=== PATIENT | male | born 1945 | race Caucasian/White ===

== ENCOUNTER 2017-05-29 12:42 | Inpatient (IN) | payer MEDICARE, OTHER ==
--- NOTE | 2017-05-29 13:12 | EDM.PDOC ---
ED HPI GENERAL MEDICAL PROBLEM - General Chief Complaint: Fever Stated Complaint: headache, fever Time Seen by Provider: 05/29/17 13:05 Source of Information: Reports: Patient, Alf Records [place] [place] with minimal verbal report from the nursing staff), Old Records ([facility] chart/EMR) History Limitations: Reports: Altered Mental Status - History of Present Illness INITIAL COMMENTS - FREE TEXT/NARRATIVE: Patient is a poor historian and somewhat uncooperative. He was brought to the emergency room via transport vehicle from [facility] for evaluation of intermittent fevers, borderline increased confusion, and borderline fatigue with symptoms starting about 3 days ago. He has had an intermittent temperature of 101.8 since that time with last Tylenol dosage earlier this morning. No apparent recent chest pain or anginal type symptoms. He denies any abdominal pain, nausea, emesis, etc. with apparent normal bowel movement earlier today per jail staff. He denies any cough, wheezing, dyspnea or distress. He does complain of 8/10 nonspecific bilateral occipital headache, however no other known change in his previous neurological status. Blood work earlier today did show some significant leukocytosis with his regular provider, [place] May[place] PA-C[place] [facility] [place]. No other treatment prior to arrival Onset: Today, Unknown/Unsure Onset Date: 05/26/17 Duration: Getting Worse Location: Reports: Head. Denies: Face, Neck, Chest, Abdomen, Back, Upper Extremity, Left, Upper Extremity, Right, Radiates to Quality: Reports: Ache, Same as Previous Episode Severity: Severe Improves with: Reports: None Worsens with: Reports: None Context: Reports: Other (As above) Associated Symptoms: Reports: Confusion, Fever/Chills, Headaches, Other ( Nonspecific fatigue as above). Denies: Chest Pain, Cough, cough w sputum, Diaphoresis, Loss of Appetite, Nausea/Vomiting, Shortness of Breath, Weakness Treatments KEYBOARD INSTRUMENT TUNER: Reports: Acetaminophen - Related Data Allergies Allergy/AdvReac Type Severity Reaction Status Date / Time No Known Allergies Allergy Verified 09/30/14 19:33 Home Meds: Home Meds Calcium Polycarbophil [Fibercon] 625 mg PO DAILY 04/02/14 [History] Carvedilol [Coreg] 12.5 mg PO BID 04/02/14 [History] Hydrochlorothiazide 12.5 mg PO DAILY 04/02/14 [History] Methenamine Hippurate 1 gm PO BID 04/02/14 [History] Tamsulosin [Flomax] 0.4 mg PO DAILY@1600 04/02/14 [History] atorvaSTATin [Lipitor] 20 mg PO 0800 04/02/14 [History] glipiZIDE [Glipizide ER] 7.5 mg PO BID 04/02/14 [History] Acetaminophen [Tylenol] 650 mg PO Q4HR PRN #14 tablet 09/30/14 [Rx] Lisinopril 20 mg PO DAILY 09/30/14 [History] Pantoprazole [ProTONIX] 40 mg PO DAILY 09/30/14 [History] amLODIPine [Norvasc] 5 mg PO DAILY 09/30/14 [History] Aspirin [Halfprin] 81 mg PO DAILY 05/29/17 [History] Hydrocortisone [Hydrocortisone 1% Crm] 1 dose TOP BID PRN 05/29/17 [History] Lisinopril [Prinivil] 10 mg PO DAILY@1600 05/29/17 [History] Loperamide HCl [Imodium A-D] 2 mg PO ASDIRECTED PRN 05/29/17 [History] Mag Hydrox/Al Hydrox/Simeth [Antacid M Liquid] 15 - 20 ml PO QID PRN 05/29/17 [ History] Sennosides/Docusate Sodium [Senna S Tablet] 1 each PO DAILY 05/29/17 [History] Past Medical History HEENT History: Reports: Hard of Hearing, Impaired Vision, Other (See Below). Denies: Allergic Rhinitis Other HEENT History: Wears reading glasses, bilateral presbycusis with no current therapy Cardiovascular History: Reports: CAD, Cardiomyopathy, High Cholesterol, Hypertension. Denies: Afib, Arrhythmia, PR Respiratory History: Reports: None Gastrointestinal History: Reports: Chronic Constipation, Colon Polyp, Diverticulosis, Gastritis, GERD, GI Bleed, PUD, Other (See Below) Other Gastrointestinal History: Lower GI bleed secondary to diverticulitis on Genitourinary History: Reports: BPH, Chronic Renal Insuffiency, Diabetic Nephropathy, Renal Calculus, Retention, Urinary, Urinary Incontinence, UTI, Recurrent, Other (See Below) Other Genitourinary History: BPH with history of PSA elevation and secondary urinary retention and incontinence, chronic bilateral hydroceles Musculoskeletal History: Reports: Back Pain, Chronic, Neck Pain, Chronic, Osteoarthritis Neurological History: Reports: CVA, Other (See Below) Other Neuro History: 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 Denies: Diabetes, Type I, Hypothyroidism, IDDM Hematologic History: Reports: Anemia, Blood Transfusion(s), Other (See Below) Other Hematologic History: Possible previous blood transfusion secondary to lower GI bleed in March 2014 Immunologic History: Denies: AIDS, HIV, SLE Oncologic (Cancer) History: Reports: Other (See Below). Denies: Prostate Other Oncologic History: Denies cancer history although note BPH with PSA elevation by history Dermatologic History: Reports: Chronic Cellulitis, Other (See Below) Other Dermatologic History: Chronic tinea in the perineal and testicle region, actinic keratoses - Infectious Disease History Infectious Disease History: Reports: Chicken Pox, Measles, Mumps. Denies: C- Difficile, MRSA, VRE - Past Surgical History HEENT Surgical History: Reports: Myringotomy w Tube(s), Oral Surgery, Other ( See Below) Other HEENT Surgeries/Procedures: Bilateral PE tubes as a child, [place] teeth extraction GI Surgical History: Reports: Colonoscopy, Other (See Below) Other GI Surgeries/Procedures: Last colonoscopy in April 2014 at the [facility], EGD in April 2014 at the [facility] Male Surgical History: Reports: TURP-Transurethral Resection of Prostate. Denies: Circumcision - History Comment History Comment: Unable to obtain complete history secondary to patient's mental status and uncooperativeness Social & Family History - Family History Family Medical History: Unobtainable - Tobacco Use Tobacco Use Within Last Twelve Months: No Years of Tobacco use: 20 Used Tobacco, but Quit: Yes Month Tobacco Last Used: 2012 Smoking Cessation Information Provided To Patient: No Second Hand Smoke Exposure: No Second Hand Smoke Education Provided: No - Alcohol Use Alcohol Use History: Yes Days Per Week of Alcohol Use: 0 (Last alcohol use in about 1994) - Recreational Drug Use Recreational Drug Use: No Drug Use in Last 12 Months: No - Living Situation & Occupation Living situation: Reports: (2 children), Extended Care Facility (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 ED EXAM, GENERAL - Physical Exam Exam: See Below Exam Limited By: Altered Mental Status General Appearance: Alert, WD/WN, No Apparent Distress, Anxious (Mild to moderate), Other (Uncooperative wants to go back to the jail) Eye Exam: Bilateral Eye: EOMI, Normal Inspection (No nystagmus), PERRL Ears: Normal External Exam, Normal Canal (Moderate cerumen in the EACs left greater than right), Normal TMs, Hearing Loss (Stable chronic bilateral presbycusis but no hearing aide therapy) Throat/Mouth: Normal Inspection, Normal Lips, Normal Teeth, Normal Gums, Normal Oropharynx, Normal Voice, No Airway Compromise Head: Atraumatic, Normocephalic. No: Facial Swelling, Facial Tenderness, Sinus Tenderness Neck: Supple, Non-Tender, Full Range of Motion, Carotid Bruit (Mild bilateral carotid bruits). No: Lymphadenopathy (L), Lymphadenopathy (R), Thyromegaly Respiratory/Chest: No Respiratory Distress, No Accessory Muscle Use, Chest Non- Tender, Rales (Mild bilateral basilar). No: Pleural Rub, Retractions Cardiovascular: Normal Peripheral Pulses, Regular Rate, Rhythm, No Edema, No Gallop, No JVD, No Murmur, No Rub. No: Gallop/S3, Gallop/S4, Friction Rub Peripheral Pulses: 2+: Radial (L), Radial (R), Dorsalis Pedis (L), Dorsalis Pedis (R) GI/Abdominal: Normal Bowel Sounds, Soft, Non-Tender, No Organomegaly, No Distention, No Abnormal Bruit, No Mass, Pelvis Stable, Hernia (3 cm nonincarcerated umbilical hernia), Other (Obese). No: Guarding, Rebound (Male) Exam: Other (Bilateral hydroceles with stable chronic perennial dermatitis). No: Circumcised Rectal (Males) Exam: Deferred Back Exam: Normal Inspection, Full Range of Motion. No: CVA Tenderness (L), CVA Tenderness (R), Muscle Spasm Extremities: Non-Tender, No Pedal Edema, Normal Capillary Refill. No: Emely's Sign, Limited Range of Motion (Secondary to left hemiparesis) Neurological: Alert, Normal Reflexes (Negative Babinski's), Confused (Stable chronic), Sensory/Motor Deficit (Stable mild to moderate left-sided hemiparesis) Psychiatric: Anxious (Mild to moderate), Depressed Mood (Mild with adequate eye contact), Other (Uncooperative as above) Skin Exam: Dry, Intact, Rash (Perineal and scrotal region as above ). No: Decubitus, Diaphoretic, Wound/Incision Lymphatic: No Adenopathy Course - Vital Signs Last Recorded V/S: Last Vital Signs Temp 38.1 C 05/29/17 13:01 Pulse 61 05/29/17 14:00 Resp 20 05/29/17 14:00 BP 132/56 L 05/29/17 14:00 Pulse Ox 95 05/29/17 14:00 Vital Signs - 24 hr 05/29/17 05/29/17 05/29/17 13:01 13:47 14:00 Temperature [ 38.1 C Temporal] Pulse, 79 79 61 Peripheral [ Right Pulse Oximetry] Respiratory 20 20 20 Rate Blood Pressure 130/61 142/76 H 132/56 L [Right Upper Arm] O2 Sat by Pulse 98 95 95 Oximetry - Orders/Labs/Meds Orders: Active Orders 24 hr Category Date Time Status Cardiac Monitoring [RC] . DIRECTED Care 05/29/17 13:24 Active Chest 1V Frontal [CR] Stat Exams 05/29/17 13:13 Taken CULTURE BLOOD [BC] Stat Lab 05/29/17 13:15 Ordered CULTURE BLOOD [BC] Stat Lab 05/29/17 13:40 Received CULTURE URINE [RM] Stat Lab 05/29/17 13:40 Received INFLUENZA A+B AG SCREEN [RM] Stat Lab 05/29/17 13:13 Uncollected KETONES,BLOOD [CHEM] Routine Lab 05/29/17 13:40 Received Sodium Chloride 0.9% [Saline Flush] Med 05/29/17 13:12 Active 10 ml FLUSH ASDIRECTED PRN Blood Culture x2 Reflex Set [OM.PC] Urgent Oth 05/29/17 13:12 Ordered Comfort Measures [OM.PC] Routine Oth 05/29/17 13:13 Ordered Peripheral IV Insertion Adult [OM.PC] Stat Oth 05/29/17 13:15 Ordered Medication Orders Sodium Chloride (Saline Flush) 10 ml FLUSH ASDIRECTED PRN PRN Reason: Keep Vein Open Labs: Laboratory Tests 05/29/17 05/29/17 05/29/17 Range/Units 13:40 13:40 13:40 Hemoglobin A1c 6.6 H (4.3-5.7) % Lactic Acid (0.4-2.0) mmol/L Uric Acid 8.2 H (2.6-7.2) mg/dL Magnesium 1.8 (1.8-2.4) mg/dL Specimen Type Urine Color Urine Appearance Urine pH (5.0-9.0) Ur Specific [place] (1.005-1.030) Urine Protein (NEGATIVE) mg/dL Urine Glucose (UA) (NEGATIVE) mg/dL Urine Ketones (NEGATIVE) mg/dL Urine Occult Blood (NEGATIVE) Urine Nitrite (NEGATIVE) Urine Bilirubin (NEGATIVE) Urine Urobilinogen (0.2-1.0) E.U./dL Ur Leukocyte Esterase (NEGATIVE) Urine RBC /HPF Urine WBC /HPF Ur Epithelial Cells /LPF Urine Bacteria (NONE TO FEW) /HPF 05/29/17 05/29/17 Range/Units 13:40 13:40 Hemoglobin A1c (4.3-5.7) % Lactic Acid 2.2 H (0.4-2.0) mmol/L Uric Acid (2.6-7.2) mg/dL Magnesium (1.8-2.4) mg/dL Specimen Type Urinqcath Urine Color Yellow Urine Appearance Slightly cloudy Urine pH 5.0 (5.0-9.0) Ur Specific [place] 1.025 (1.005-1.030) Urine Protein 100 H (NEGATIVE) mg/dL Urine Glucose (UA) Negative (NEGATIVE) mg/dL Urine Ketones Negative (NEGATIVE) mg/dL Urine Occult Blood Large H (NEGATIVE) Urine Nitrite Negative (NEGATIVE) Urine Bilirubin Negative (NEGATIVE) Urine Urobilinogen 0.2 (0.2-1.0) E.U./dL Ur Leukocyte Esterase Trace H (NEGATIVE) Urine RBC 5-10 H /HPF Urine WBC 40-50 H /HPF Ur Epithelial Cells Few /LPF Urine Bacteria Moderate H (NONE TO FEW) /HPF Urine specimen set up for culture and sensitivity with blood cultures 2 collected in the emergency room Blood work earlier today ordered through his regular provider, MERLENE Cedillo, [place] [facility] shows elevated WBCs of 24.9, mildly decreased hemoglobin of 12.7 neutrophils of 88.7%, random glucose of 245, BUN 21, creatinine 1.40, protein 3.1 and CRP of 11.2. Otherwise normal CBC and comprehensive metabolic panel Meds: Medications Generic Name Dose Route Start Last Admin Trade Name Freq PRN Reason Stop Dose Admin Sodium Chloride 10 ml 05/29/17 13:12 Saline Flush FLUSH ASDIRECTED PRN Keep Vein Open Discontinued Medications Generic Name Dose Route Start Last Admin Trade Name Freq PRN Reason Stop Dose Admin Famotidine 40 mg 05/29/17 14:06 05/29/17 14:13 Pepcid IVPUSH 05/29/17 14:07 40 mg ONETIME ONE Administration Ceftriaxone Sodium 2 gm/ 100 mls @ 200 mls/hr 05/29/17 13:16 05/29/17 14:02 Sodium Chloride IV 05/29/17 13:45 200 mls/hr ONETIME ONE Administration Ketorolac Tromethamine 30 mg 05/29/17 14:06 05/29/17 14:12 Toradol IVPUSH 05/29/17 14:07 30 mg ONETIME ONE Administration - Radiology Interpretation Free Text/Narrative:: electronic device monitor shows normal sinus rhythm with heart rate in the 80s with no ectopy or arrhythmia Chest x-ray, portable, shows evidence of mild cardiomegaly including left atrial enlargement with moderate COPD changes and probable pulmonary hypertension. No pneumothorax, pulmonary infiltrates, etc. Departure - Departure Time of Disposition: 14:55 Disposition: Admitted As Inpatient 65 Condition: Fair Clinical Impression: Lactic acid acidosis, Hyperuricemia, Hypoalbuminemia, Comfort measures only status, Peptic reflux disease, Mental disorder, Heart disease, Cerebral infarction, HTN, Benign hypertension UTI (urinary tract infection) Qualifiers: Urinary tract infection type: acute cystitis Hematuria presence: with hematuria Qualified Code(s): N30.01 - Acute cystitis with hematuria COPD (chronic obstructive pulmonary disease) Qualifiers: COPD type: emphysema Emphysema type: panlobular Qualified Code(s): J43.1 - Panlobular emphysema - Discharge Information Forms: ED Department Discharge Care Plan Goals: See plan - Problem List & Annotations (1) UTI (urinary tract infection) SNOMED Code(s): 66945939 Code(s): N39.0 - URINARY TRACT INFECTION, SITE NOT SPECIFIED Status: Acute Priority: High Current Visit: Yes Onset Date: 05/29/17 Annotation/ Comment:: History of recurrent UTIs with possible urosepsis at this time with significant leukocytosis on admission and only mild lactic acid elevation. High- dose IV Rocephin therapy initiated in the emergency room. Urine specimen sent up for culture and sensitivity with additional blood cultures 2 as above. Telephone consultation at 14:35 hours with Vickie, inpatient coordinator from the [facility] in [place], with no bed available in their facility. Continue aggressive IV Rocephin therapy for now. Note comfort care as below Qualifiers: Urinary tract infection type: acute cystitis Hematuria presence: with hematuria Qualified Code(s): N30.01 - Acute cystitis with hematuria (2) Lactic acid acidosis SNOMED Code(s): 19764385 Code(s): E87.2 - ACIDOSIS Status: Acute Priority: High Current Visit: Yes Onset Date: 05/29/17 Annotation/Comment:: Lactic acid level later this evening and in the a.m. No clinical evidence of sepsis despite significant leukocytosis as above (3) Comfort measures only status SNOMED Code(s): 38262955855648 Code(s): Z51.5 - ENCOUNTER FOR PALLIATIVE CARE Status: Chronic Priority: Medium Current Visit: Yes Annotation/Comment:: Comfort care only, limited patient does agree to transfer to the [place] in hospital when bed is available (4) HTN, Benign hypertension SNOMED Code(s): 89313162 Code(s): I10 - ESSENTIAL (PRIMARY) HYPERTENSION Status: Acute Priority: Medium Annotation/Comment:: Blood pressures under reasonably good control in the emergency room (5) Diabetes mellitus type 2 SNOMED Code(s): 71998543 Code(s): E11.9 - TYPE 2 DIABETES MELLITUS WITHOUT COMPLICATIONS Status: Acute Annotation/Comment:: Elevated blood sugars today with glycosylated hemoglobin drawn today with results as above (6) Heart disease SNOMED Code(s): 13384086 Code(s): I51.9 - HEART DISEASE, UNSPECIFIED Status: Acute Priority: Medium Annotation/Comment:: No anginal complaints at this time (7) Peptic reflux disease SNOMED Code(s): 93986075 Code(s): K21.9 - GASTRO-ESOPHAGEAL REFLUX DISEASE WITHOUT ESOPHAGITIS Status: Acute Priority: Medium Annotation/Comment:: Stable by history with previous history of lower GI bleed secondary to diverticulitis. No abdominal complaints at this time despite his umbilical hernia. High-dose IV Pepcid given as GI prophylaxis secondary to IV Toradol given in the emergency room or his headache (8) Mental disorder SNOMED Code(s): 40644766 Code(s): F99 - MENTAL DISORDER, NOT OTHERWISE SPECIFIED Status: Acute Priority: High Annotation/Comment:: Some problems with memory secondary to distant CVA as above/below with some possible mild increase of his confusion today secondary to his current infection. Continue to observe symptoms closely (9) Cerebral infarction SNOMED Code(s): 551847178 Code(s): I63.9 - CEREBRAL INFARCTION, UNSPECIFIED Status: Acute Priority : High Annotation/Comment:: History of distant CVA with left-sided hemiparesis and memory problems with no recent change in his neurological status despite headache today. No direct evidence of repeat CVA by clinical exam with continued close observation of his neurological status by jail staff and his regular providers. (10) COPD (chronic obstructive pulmonary disease) SNOMED Code(s): 03464596 Code(s): J44.9 - CHRONIC OBSTRUCTIVE PULMONARY DISEASE, UNSPECIFIED Status : Chronic Priority: Medium Current Visit: Yes Annotation/Comment:: COPD by chest x-ray with no recent headache-type symptoms Qualifiers: COPD type: emphysema Emphysema type: panlobular Qualified Code(s): J43.1 - Panlobular emphysema (11) Hyperuricemia SNOMED Code(s): 74804586 Code(s): E79.0 - HYPERURICEMIA W/O SIGNS OF INFLAM ARTHRIT AND TOPHACEOUS DIS Status: Chronic Priority: Medium Current Visit: Yes Onset Date: Annotation/Comment:: No previous history of gout attacks. Osteoarthritis stable by history (12) Hypoalbuminemia SNOMED Code(s): 529130194 Code(s): E88.09 - OTH DISORDERS OF PLASMA-PROTEIN METABOLISM, NEC Status: Chronic Priority: Medium Current Visit: Yes Annotation/Comment:: Initiate high-protein Glucerna supplements as snacks - Problem List Review Problem List Initiated/Reviewed/Updated: Yes - My Orders Last 24 Hours: My Active Orders 05/29/17 13:12 Sodium Chloride 0.9% [Saline Flush] 10 ml FLUSH ASDIRECTED PRN Blood Culture x2 Reflex Set [OM.PC] Urgent 05/29/17 13:13 Chest 1V Frontal [CR] Stat INFLUENZA A+B AG SCREEN [RM] Stat Comfort Measures [OM.PC] Routine 05/29/17 13:15 CULTURE BLOOD [BC] Stat Peripheral IV Insertion Adult [OM.PC] Stat 05/29/17 13:24 Cardiac Monitoring [RC] . DIRECTED 05/29/17 13:40 CULTURE BLOOD [BC] Stat CULTURE URINE [RM] Stat KETONES,BLOOD [CHEM] Routine - Assessment/Plan Admission H&P: Please use this note as an admission H&P Last 24 Hours: My Active Orders 05/29/17 13:12 Sodium Chloride 0.9% [Saline Flush] 10 ml FLUSH ASDIRECTED PRN Blood Culture x2 Reflex Set [OM.PC] Urgent 05/29/17 13:13 Chest 1V Frontal [CR] Stat INFLUENZA A+B AG SCREEN [RM] Stat Comfort Measures [OM.PC] Routine 05/29/17 13:15 CULTURE BLOOD [BC] Stat Peripheral IV Insertion Adult [OM.PC] Stat 05/29/17 13:24 Cardiac Monitoring [RC] . DIRECTED 05/29/17 13:40 CULTURE BLOOD [BC] Stat CULTURE URINE [RM] Stat KETONES,BLOOD [CHEM] Routine Assessment:: As above Plan: As above. Extensive precautions were given to the patient, who is in agreement with the treatment plan. The patient will require about 3-4 days of inpatient/ acute care secondary to multiple health problems as above.
[2017-05-29] MEDS ORDERED: cefTRIAXone 2 GM in Sodium Chloride 0.9% 100 ML IV ONE (13:16)
[2017-05-29] MEDS ORDERED: Famotidine 20 MG/2 ML SDV IVPUSH ONE (14:06)
[2017-05-29] MEDS ORDERED: Ketorolac 30 MG/ML SDV IVPUSH ONE (14:06)
[2017-05-29] MEDS ORDERED: Hydrocortisone 1% Crm 1.5 GM Packet TOP PRN (15:19)
[2017-05-29] MEDS ORDERED: Loperamide 2 MG Tab PO PRN (15:19)
[2017-05-29] MEDS ORDERED: Albuterol/Ipratropium 3.0-0.5 MG/3 ML Neb Soln NEB PRN (15:28)
[2017-05-29] MEDS ORDERED: Sodium Chloride 0.9% 10 ML Syringe FLUSH PRN (15:28)
[2017-05-29] MEDS ORDERED: Temazepam 15 MG Cap PO PRN (15:28)
[2017-05-29] MEDS ORDERED: Albuterol 0.083% 2.5 MG/3 ML Neb Soln INH PRN (16:00)
[2017-05-29] MEDS: Tamsulosin 0.4 MG Cap.ER PO SCH (16:07)
[2017-05-29] MEDS: Enoxaparin 30 MG/0.3 ML Syringe SUBCUT SCH (16:07)
[2017-05-29] MEDS: Lisinopril 10 MG Tab PO SCH (16:07)
[2017-05-29] MEDS: Insulin Aspart 100 Units/ML 3 ML Pen SUBCUT SCH ×3 (17:25→20:56)
[2017-05-29] MEDS: glipiZIDE 5 MG Tab.ER PO SCH (17:27)
[2017-05-29] MEDS: Carvedilol 25 MG Tab PO SCH (17:27)
[2017-05-29] MEDS: glipiZIDE 2.5 MG Tab.ER PO SCH (17:28)
[2017-05-29] MEDS: Acetaminophen 325 MG Tab PO PRN (17:31)
[2017-05-29] MEDS ORDERED: glipiZIDE 5 MG Tab.ER PO SCH (18:00)
[2017-05-30] MEDS: Acetaminophen 325 MG Tab PO PRN ×2 (02:46→20:26)
[2017-05-30] MEDS: cefTRIAXone 1 GM in Sodium Chloride 0.9% 100 ML IV SCH ×2 (02:55→14:39)
[2017-05-30] MEDS: Hydrochlorothiazide 25 MG Tab PO SCH (09:57)
[2017-05-30] MEDS: atorvaSTATin 10 MG Tab PO SCH (09:57)
[2017-05-30] MEDS: Pantoprazole 40 MG Tab.CR PO SCH (09:58)
[2017-05-30] MEDS: amLODIPine 5 MG Tab PO SCH (09:58)
[2017-05-30] MEDS: Carvedilol 25 MG Tab PO SCH ×2 (10:01→17:02)
[2017-05-30] MEDS: Aspirin 81 MG Tab.EC PO SCH (10:02)
[2017-05-30] MEDS: glipiZIDE 2.5 MG Tab.ER PO SCH ×2 (10:02→17:02)
[2017-05-30] MEDS: glipiZIDE 5 MG Tab.ER PO SCH ×2 (10:02→17:02)
[2017-05-30] MEDS: Calcium Polycarbophil 625 MG Tab PO SCH (10:03)
[2017-05-30] MEDS ORDERED: Ciprofloxacin in D5W 400 MG in Premix Bag 1 BAG IV ONE ×2 (10:05)
[2017-05-30] MEDS: Lisinopril 20 MG Tab PO SCH (10:09)
[2017-05-30] MEDS: Insulin Aspart 100 Units/ML 3 ML Pen SUBCUT SCH ×4 (10:11→20:29)
[2017-05-30] MEDS: Sodium Chloride 0.9% 10 ML Syringe FLUSH PRN ×2 (10:13→14:39)
--- NOTE | 2017-05-30 10:13 | PCM.PN ---
- General Info Date of Service: 05/30/17 Admission Dx/Problem (Free Text): UTI with possibility of urosepsis Subjective Update: Patient is a poor historian Functional Status: Reports: Pain Controlled, Tolerating Diet, Ambulating, Urinating, Incentive Spirometry. Denies: New Symptoms Pain Score: 0 - Review of Systems General: Reports: Fever, Weakness (Stable chronic), Appetite (Adequate by nursing history). Denies: Fatigue, Malaise, Chills, Night Sweats HEENT: Reports: Rhinitis. Denies: Ear Pain, Headaches, Sore Throat Pulmonary: Denies: Shortness of Breath, Pleuritic Chest Pain, Cough, Sputum, Hemoptysis, Wheezing Cardiovascular: Denies: Chest Pain, Palpitations, Dyspnea on Exertion, Orthopnea , PND, Edema, Lightheadedness Gastrointestinal: Reports: No Symptoms. Denies: Abdominal Pain, Constipation, Decreased Appetite, Diarrhea, Difficulty Swallowing, Flatus, Hematochezia, Melena, Nausea, Vomiting Genitourinary: Reports: Incontinence. Denies: Dysuria, Frequency, Burning, Pain , Urgency, Hematuria, Retention, Flank Pain Musculoskeletal: Reports: No Symptoms. Denies: Neck Pain, Shoulder Pain, Arm Pain, Back Pain, Leg Pain Skin: Reports: No Symptoms. Denies: Diaphoresis, Bruising Neurological: Reports: Confusion (Stable chronic), Difficulty Walking ( Secondary to chronic hemiparesis as below), Weakness (Stable left hemiparesis). Denies: Dizziness, Headache, Numbness, Paresthesia, Tingling, Change in Speech Psychiatric: Reports: Confusion (As above), Agitation (Occasional). Denies: Depression, Anxiety, Cravings, Hallucinations, Suicidal Ideation, Homicidal Ideation - Patient Data Vitals - Most Recent: Last Vital Signs Temp 37.7 C 05/30/17 03:24 Pulse 77 05/30/17 10:01 Resp 16 05/30/17 03:24 BP 134/73 05/30/17 10:01 Pulse Ox 97 05/30/17 03:24 Vital Signs - 24 hr 05/29/17 05/29/17 05/29/17 13:01 13:47 14:00 Temperature [ 38.1 C Temporal] Pulse, Peripheral Pulse, 79 79 61 Peripheral [ Right Pulse Oximetry] Respiratory 20 20 20 Rate Blood Pressure Blood Pressure 130/61 142/76 H 132/56 L [Right Upper Arm] O2 Sat by Pulse 98 95 95 Oximetry O2 Sat by Pulse Oximetry [Room Air] 05/29/17 05/29/17 05/29/17 15:26 15:27 16:00 Temperature [ 37.6 C Temporal] Pulse, Peripheral Pulse, 66 Peripheral [ Right Pulse Oximetry] Respiratory 16 Rate Blood Pressure Blood Pressure 131/61 [Right Upper Arm] O2 Sat by Pulse 95 96 Oximetry O2 Sat by Pulse 95 Oximetry [Room Air] 05/29/17 05/29/17 05/29/17 17:27 20:00 23:05 Temperature [ 37.7 C 37.1 C Temporal] Pulse, 61 Peripheral Pulse, 64 73 Peripheral [ Right Pulse Oximetry] Respiratory 16 18 Rate Blood Pressure 132/56 L Blood Pressure 122/63 167/80 H [Right Upper Arm] O2 Sat by Pulse 96 98 Oximetry O2 Sat by Pulse Oximetry [Room Air] 05/30/17 05/30/17 05/30/17 03:24 09:58 10:01 Temperature [ 37.7 C Temporal] Pulse, 77 Peripheral Pulse, 80 Peripheral [ Right Pulse Oximetry] Respiratory 16 Rate Blood Pressure 134/73 134/73 Blood Pressure 153/75 H [Right Upper Arm] O2 Sat by Pulse 97 Oximetry O2 Sat by Pulse Oximetry [Room Air] 05/30/17 10:09 Temperature [ Temporal] Pulse, Peripheral Pulse, Peripheral [ Right Pulse Oximetry] Respiratory Rate Blood Pressure 134/73 Blood Pressure [Right Upper Arm] O2 Sat by Pulse Oximetry O2 Sat by Pulse Oximetry [Room Air] Weight - Most Recent: 102.965 kg Imaging Impressions - Last 24 Hours: quality assurance monitor final shows very occasional PVCs with otherwise normal sinus rhythm with average heart rate in the 70s with no other ectopy or arrhythmia Lab Results Last 24 Hours: Laboratory Results - last 24 hr 05/29/17 05/29/17 05/30/17 Range/Units 17:24 20:35 03:15 WBC (4.0-10.2) K/uL RBC (4.33-5.41) M/uL Hgb (13.1-16.8) g/dL Hct (39.0-49.0) % MCV (84.0-98.0) fL MCH (28.2-33.3) pg MCHC (31.7-36.0) g/dL RDW (11.2-14.1) % Plt Count (150-350) K/uL Neut % (Auto) (45.0-80.0) % Lymph % (Auto) (10.0-50.0) % [place] % (Auto) (2.0-14.0) % Eos % (Auto) (0.0-5.0) % Baso % (Auto) (0.0-2.0) % Neut # (Auto) (1.40-7.00) K/uL Lymph # (Auto) (0.50-3.50) K/uL [place] # (Auto) (0.00-1.00) K/uL Eos # (Auto) (0.00-0.50) K/uL Baso # (Auto) (0.00-0.20) K/uL Sodium (136-145) mmol/L Potassium (3.5-5.1) mmol/L Chloride (98-107) mmol/L Carbon Dioxide (21.0-32.0) mmol/L BUN (7-18) mg/dL Creatinine (0.51-1.17) mg/dL Est Cr Clr Drug Dosing mL/min Estimated GFR (MDRD) mL/min Glucose (74-106) mg/dL POC Glucose 175 H 138 H (65-110) mg/dl Lactic Acid 1.2 (0.4-2.0) mmol/L Calcium (8.5-10.1) mg/dL Total Bilirubin (0.2-1.0) mg/dL AST (15-37) U/L ALT (12-78) U/L Alkaline Phosphatase (46-116) IU/L Total Protein (6.4-8.2) g/dL Albumin (3.4-5.0) g/dL 05/30/17 05/30/17 05/30/17 Range/Units 06:40 06:40 06:40 WBC 21.9 H (4.0-10.2) K/uL RBC 4.06 L (4.33-5.41) M/uL Hgb 11.6 L (13.1-16.8) g/dL Hct 34.8 L (39.0-49.0) % MCV 85.7 (84.0-98.0) fL MCH 28.6 (28.2-33.3) pg MCHC 33.3 (31.7-36.0) g/dL RDW 13.5 (11.2-14.1) % Plt Count 163 (150-350) K/uL Neut % (Auto) 86.5 H (45.0-80.0) % Lymph % (Auto) 5.6 L (10.0-50.0) % [place] % (Auto) 7.4 (2.0-14.0) % Eos % (Auto) 0.3 (0.0-5.0) % Baso % (Auto) 0.2 (0.0-2.0) % Neut # (Auto) 18.90 H (1.40-7.00) K/uL Lymph # (Auto) 1.22 (0.50-3.50) K/uL [place] # (Auto) 1.62 H (0.00-1.00) K/uL Eos # (Auto) 0.07 (0.00-0.50) K/uL Baso # (Auto) 0.04 (0.00-0.20) K/uL Sodium 139 (136-145) mmol/L Potassium 3.6 (3.5-5.1) mmol/L Chloride 104 (98-107) mmol/L Carbon Dioxide 24.8 (21.0-32.0) mmol/L BUN 25 H (7-18) mg/dL Creatinine 1.62 H (0.51-1.17) mg/dL Est Cr Clr Drug Dosing 40.02 mL/min Estimated GFR (MDRD) 42 mL/min Glucose 140 H (74-106) mg/dL POC Glucose (65-110) mg/dl Lactic Acid 1.8 (0.4-2.0) mmol/L Calcium 8.6 (8.5-10.1) mg/dL Total Bilirubin 0.5 (0.2-1.0) mg/dL AST 9 L (15-37) U/L ALT 10 L (12-78) U/L Alkaline Phosphatase 77 (46-116) IU/L Total Protein 7.1 (6.4-8.2) g/dL Albumin 2.7 L (3.4-5.0) g/dL 05/30/17 Range/Units 07:09 WBC (4.0-10.2) K/uL RBC (4.33-5.41) M/uL Hgb (13.1-16.8) g/dL Hct (39.0-49.0) % MCV (84.0-98.0) fL MCH (28.2-33.3) pg MCHC (31.7-36.0) g/dL RDW (11.2-14.1) % Plt Count (150-350) K/uL Neut % (Auto) (45.0-80.0) % Lymph % (Auto) (10.0-50.0) % [place] % (Auto) (2.0-14.0) % Eos % (Auto) (0.0-5.0) % Baso % (Auto) (0.0-2.0) % Neut # (Auto) (1.40-7.00) K/uL Lymph # (Auto) (0.50-3.50) K/uL [place] # (Auto) (0.00-1.00) K/uL Eos # (Auto) (0.00-0.50) K/uL Baso # (Auto) (0.00-0.20) K/uL Sodium (136-145) mmol/L Potassium (3.5-5.1) mmol/L Chloride (98-107) mmol/L Carbon Dioxide (21.0-32.0) mmol/L BUN (7-18) mg/dL Creatinine (0.51-1.17) mg/dL Est Cr Clr Drug Dosing mL/min Estimated GFR (MDRD) mL/min Glucose (74-106) mg/dL POC Glucose 124 H (65-110) mg/dl Lactic Acid (0.4-2.0) mmol/L Calcium (8.5-10.1) mg/dL Total Bilirubin (0.2-1.0) mg/dL AST (15-37) U/L ALT (12-78) U/L Alkaline Phosphatase (46-116) IU/L Total Protein (6.4-8.2) g/dL Albumin (3.4-5.0) g/dL Gregorio Results Last 24 Hours: Microbiology 05/29/17 13:40 Nasopharyngeal Swab - Nare, Right Influenza Type A Antigen Screen - Final NEGATIVE INFLUENZA A VIRUS AG 05/29/17 13:40 Nasopharyngeal Swab - Nare, Right Influenza Type B Antigen Screen - Final NEGATIVE INFLUENZA B VIRUS AG Blood cultures 2 and urine specimen for culture and sensitivity pending Med Orders - Current: Current Medications Acetaminophen (Tylenol) 650 mg PO Q4HR PRN PRN Reason: Fever Last Admin: 05/30/17 02:46 Dose: 650 mg Albuterol (Proventil Neb Soln) 2.5 mg INH Q2H PRN PRN Reason: SHORTNESS OF BREATH Albuterol/Ipratropium (Duoneb 3.0-0.5 Mg/3 Ml) 3 ml NEB Q4HRRT PRN PRN Reason: Dyspnea Amlodipine Besylate (Norvasc) 5 mg PO DAILY [facility] Last Admin: 05/30/17 09:58 Dose: 5 mg Aspirin (Halfprin) 81 mg PO DAILY [facility] Last Admin: 05/30/17 10:02 Dose: 81 mg Atorvastatin Calcium (Lipitor) 20 mg PO DAILY [facility] Last Admin: 05/30/17 09:57 Dose: 20 mg Calcium Polycarbophil (Fibercon) 625 mg PO DAILY [facility] Last Admin: 05/30/17 10:03 Dose: 625 mg Carvedilol (Coreg) 12.5 mg PO BID [facility] Last Admin: 05/30/17 10:01 Dose: 12.5 mg Enoxaparin Sodium (Lovenox) 30 mg SUBCUT Q24H [facility] Last Admin: 05/29/17 16:07 Dose: 30 mg Glipizide (Glucotrol Xl) 5 mg PO BID [facility] Last Admin: 05/30/17 10:02 Dose: 5 mg Glipizide (Glucotrol Xl) 2.5 mg PO BID [facility] Last Admin: 05/30/17 10:02 Dose: 2.5 mg Hydrochlorothiazide (Hydrochlorothiazide) 12.5 mg PO DAILY [facility] Last Admin: 05/30/17 09:57 Dose: 12.5 mg Hydrocortisone (Hydrocortisone 1% Crm) 0 gm TOP BID PRN PRN Reason: Rash Ceftriaxone Sodium 1 gm/ (Sodium Chloride) 100 mls @ 200 mls/hr IV Q12H [facility] Last Admin: 05/30/17 02:55 Dose: 200 mls/hr Ciprofloxacin/Dextrose 400 mg/ (Premix) 200 mls @ 200 mls/hr IV ONETIME ONE Stop: 05/30/17 11:04 Ciprofloxacin/Dextrose 200 mg/ (Premix) 100 mls @ 100 mls/hr IV Q24H [facility] Insulin Aspart (Novolog) 0 unit SUBCUT ACBED [facility] PRN Reason: Protocol Last Admin: 05/29/17 20:56 Dose: Not Given Lisinopril (Prinivil) 20 mg PO DAILY [facility] Lisinopril (Prinivil) 10 mg PO DAILY@1600 [facility] Last Admin: 05/29/17 16:07 Dose: 10 mg Loperamide HCl (Imodium Ad) 2 mg PO ASDIRECTED PRN PRN Reason: Loose stools Methenamine Hippurate (Methenamine Hippurate) 1 gm PO BID [facility] Last Admin: 05/30/17 10:02 Dose: 1 gm Pantoprazole Sodium (Protonix) 40 mg PO DAILY [facility] Last Admin: 05/30/17 09:58 Dose: 40 mg Senna/Docusate Sodium (Senna Plus) 1 tab PO DAILY [facility] Last Admin: 05/30/17 10:01 Dose: 1 tab Sodium Chloride (Saline Flush) 10 ml FLUSH ASDIRECTED PRN PRN Reason: Keep Vein Open Sodium Chloride (Saline Flush) 10 ml FLUSH Q12H PRN PRN Reason: Keep Vein Open Tamsulosin HCl (Flomax) 0.4 mg PO DAILY@1600 [facility] Last Admin: 05/29/17 16:07 Dose: 0.4 mg Temazepam (Restoril) 15 mg PO BEDTIME PRN PRN Reason: Insomnia Discontinued Medications Famotidine (Pepcid) 40 mg IVPUSH ONETIME ONE Stop: 05/29/17 14:07 Last Admin: 05/29/17 14:13 Dose: 40 mg Glipizide (Glucotrol Xl) 7.5 mg PO BID [facility] Ceftriaxone Sodium 2 gm/ (Sodium Chloride) 100 mls @ 200 mls/hr IV ONETIME ONE Stop: 05/29/17 13:45 Last Admin: 05/29/17 14:02 Dose: 200 mls/hr Ketorolac Tromethamine (Toradol) 30 mg IVPUSH ONETIME ONE Stop: 05/29/17 14:07 Last Admin: 05/29/17 14:12 Dose: 30 mg - Exam Quality Assessment: DVT Prophylaxis (Subcutaneous Lovenox). No: Supplemental Oxygen, Central Line/PICC, Urine Catheter, Skin Breakdown, Restraints General: Alert, Cooperative, No Acute Distress. No: Oriented (Stable baseline confusion), Sedated, Lethargic HEENT: Pupils Equal, Pupils Reactive, EOMI, Mucous Membr. Moist/[place] Neck: Supple, Trachea Midline, No JVD, No Thyromegaly, Carotid Bruit (Mild bilateral carotid bruits) Lungs: Clear to Auscultation, Normal Respiratory Effort. No: Rub Cardiovascular: Regular Rate, Regular Rhythm, No Murmurs. No: Gallops, Rubs GI/Abdominal Exam: Normal Bowel Sounds, Soft, Non-Tender, No Organomegaly, No Distention, No Abnormal Bruit, No Mass, Pelvis Stable, Hernia (Stable 3 cm nonincarcerated umbilical hernia), Other (Obese). No: Guarding (Male) Exam: Deferred Back Exam: Normal Inspection, Full Range of Motion. No: CVA Tenderness (L), CVA Tenderness (R), Muscle Spasm Extremities: Normal Inspection, Normal Range of Motion, Non-Tender, No Pedal Edema, Normal Capillary Refill. No: Emely's Sign Peripheral Pulses: 2+: Radial (L), Radial (R), Dorsalis Pedis (L), Dorsalis Pedis (R) Skin: Warm, Dry, Intact. No: Ecchymosis Neurological: No New Focal Deficit, Other (No clinical orthostasis, stable left hemiparesis and confusion) Psy/Mental Status: Alert, Normal Affect, Normal Mood, Agitated (Occasional). No : Homicidal Ideation, Hallucinations, Withdrawal Symptoms - Problem List & Annotations (1) UTI (urinary tract infection) SNOMED Code(s): 84236059 Code(s): N39.0 - URINARY TRACT INFECTION, SITE NOT SPECIFIED Status: Acute Priority: High Current Visit: Yes Onset Date: 05/29/17 Qualifiers: Urinary tract infection type: acute cystitis Hematuria presence: with hematuria Qualified Code(s): N30.01 - Acute cystitis with hematuria Annotation/Comment:: Persistent left leukocytosis despite aggressive IV Rocephin therapy on admission. Additional Cipro therapy to be initiated this morning, including high-dose loading regimen. History of recurrent UTIs with possible urosepsis, however clinically stable at this time at this time. Note comfort care status only with extremely poor prognosis at this time secondary to refractory leukocytosis. No beds are available at the once again today with continued care in this facility. Mild lactic acid elevation on admission has resolved. High-dose IV Rocephin therapy initiated in the emergency room with continuation of standard regimen along with Cipro as above. Urine specimen set up for culture and sensitivity with additional blood cultures 2 initiated in the emergency room. Telephone consultation at 14:35 hours on 05/29/17 with Vickie, inpatient coordinator from the , with no bed available in their facility. (2) Lactic acid acidosis SNOMED Code(s): 54926188 Code(s): E87.2 - ACIDOSIS Status: Acute Priority: High Current Visit: Yes Onset Date: 05/29/17 Annotation/Comment:: As above. No clinical evidence of sepsis despite significant leukocytosis as above (3) Comfort measures only status SNOMED Code(s): 74581679004232 Code(s): Z51.5 - ENCOUNTER FOR PALLIATIVE CARE Status: Chronic Priority: Medium Current Visit: Yes Annotation/Comment:: Comfort care only, however patient does agree to transfer to the [place] in hospital when bed is available (4) HTN, Benign hypertension SNOMED Code(s): 93636297 Code(s): I10 - ESSENTIAL (PRIMARY) HYPERTENSION Status: Acute Priority: Medium Current Visit: Yes Annotation/Comment:: Blood pressures under reasonably good control in the emergency room, although occasionally elevated. Observe for now (5) Diabetes mellitus type 2 SNOMED Code(s): 64961071 Code(s): E11.9 - TYPE 2 DIABETES MELLITUS WITHOUT COMPLICATIONS Status: Acute Current Visit: No Annotation/Comment:: Blood sugars are under good control during this hospitalization with no evidence of hypoglycemia at 3 AM this morning. Sliding scale is in effect. Glycosylated hemoglobin conducted on admission (6) Heart disease SNOMED Code(s): 92445981 Code(s): I51.9 - HEART DISEASE, UNSPECIFIED Status: Acute Priority: Medium Current Visit: Yes Annotation/Comment:: No anginal complaints at this time (7) Peptic reflux disease SNOMED Code(s): 32967326 Code(s): K21.9 - GASTRO-ESOPHAGEAL REFLUX DISEASE WITHOUT ESOPHAGITIS Status: Acute Priority: Medium Current Visit: Yes Annotation/Comment:: Stable by history with previous history of lower GI bleed secondary to diverticulitis. No abdominal complaints at this time despite his umbilical hernia. High-dose IV Pepcid given as GI prophylaxis secondary to IV Toradol given in the emergency room for his headache and fever. No further IV Pepcid required with current Tylenol therapy (8) Mental disorder SNOMED Code(s): 06311414 Code(s): F99 - MENTAL DISORDER, NOT OTHERWISE SPECIFIED Status: Acute Priority: High Current Visit: Yes Annotation/Comment:: Some problems with memory secondary to distant CVA as per emergency room note. Stable confusion today secondary to his current infection. 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 No headache today. No direct evidence of repeat CVA by clinical exam with continued close observation of his neurological status (10) COPD (chronic obstructive pulmonary disease) SNOMED Code(s): 76742740 Code(s): J44.9 - CHRONIC OBSTRUCTIVE PULMONARY DISEASE, UNSPECIFIED Status : Chronic Priority: Medium Current Visit: Yes Qualifiers: COPD type: emphysema Emphysema type: panlobular Qualified Code(s): J43.1 - Panlobular emphysema Annotation/Comment:: COPD by chest x-ray with no recent bronchitic-type symptoms , etc. When necessary nebulizer treatments in effect. Note aggressive antibiotic therapy as above for his possible urosepsis (11) Hyperuricemia SNOMED Code(s): 84967251 Code(s): E79.0 - HYPERURICEMIA W/O SIGNS OF INFLAM ARTHRIT AND TOPHACEOUS DIS Status: Chronic Priority: Medium Current Visit: Yes Onset Date: Annotation/Comment:: No previous history of gout attacks. Osteoarthritis stable by history (12) Hypoalbuminemia SNOMED Code(s): 463183922 Code(s): E88.09 - OTH DISORDERS OF PLASMA-PROTEIN METABOLISM, NEC Status: Chronic Priority: Medium Current Visit: Yes Annotation/Comment:: High- protein Glucerna supplements as snacks initiated on admission (13) PVCs (premature ventricular contractions) SNOMED Code(s): 63806020 Code(s): I49.3 - VENTRICULAR PREMATURE DEPOLARIZATION Status: Acute Priority: Medium Current Visit: Yes Onset Date: 05/30/17 Annotation/ Comment:: Occasional nonsymptomatic PVCs noted. Observe for now. Note current beta yasmin therapy. Continue telemetry for now secondary to possible sepsis as above (14) Renal insufficiency SNOMED Code(s): 147690025 Code(s): N28.9 - DISORDER OF KIDNEY AND URETER, UNSPECIFIED Status: Chronic Priority: High Current Visit: Yes Annotation/Comment:: Continue to observe closely secondary to antibiotic therapy as above. Repeat blood work in the a.m. Note history of diabetic nephropathy - Problem List Review Problem List Initiated/Reviewed/Updated: Yes - My Orders Last 24 Hours: My Active Orders 05/29/17 15:19 Acetaminophen [Tylenol] 650 mg PO Q4HR PRN Hydrocortisone [Hydrocortisone 1% Crm] 0 gm TOP BID PRN Loperamide [Imodium AD] 2 mg PO ASDIRECTED PRN 05/29/17 15:23 Communication Order [RC] ROUTINE Resuscitation Status Routine 05/29/17 15:24 Anti-Embolism Stockings AK [Antiembolic Hose] [OM.PC] Routine 05/29/17 15:25 Comfort Measures [OM.PC] Routine DVT/VTE Prophylaxis Reflex [OM.PC] Routine GM Immunization Reflex [OM.PC] Click To Edit 05/29/17 15:26 Daily Weight [Height and Weight] [RC] 0600 Intake and Output Strict [RC] ASDIRECTED Oxygen Therapy [RC] PRN OCCULT BLOOD DIAGNOSTIC [OP] Stat 05/29/17 15:27 Pulse Oximetry [RC] ASDIRECTED Up With Assistance [RC] ASDIRECTED Vital Signs [RC] Q4HR 05/29/17 15:28 Albuterol/Ipratropium [DuoNeb 3.0-0.5 MG/3 ML] 3 ml NEB Q4HRRT PRN Sodium Chloride 0.9% [Saline Flush] 10 ml FLUSH Q12H PRN Temazepam [Restoril] 15 mg PO BEDTIME PRN 05/29/17 15:30 Antiembolic Devices [RC] .Routine Antiembolic Devices [RC] 08,20 RT Aerosol Therapy [RC] ASDIRECTED VTE/DVT Education [RC] PER UNIT ROUTINE Vaccines to be Administered [RC] PER UNIT ROUTINE 05/29/17 15:31 Communication Order [RC] ROUTINE 05/29/17 16:00 Albuterol [Proventil Neb Soln] 2.5 mg INH Q2H PRN Enoxaparin [Lovenox] 30 mg SUBCUT Q24H Lisinopril [Prinivil] 10 mg PO DAILY@1600 Tamsulosin [Flomax] 0.4 mg PO DAILY@1600 05/29/17 16:10 MRSA BY PCR [MREF] Routine 05/29/17 17:00 Blood Glucose Check, Bedside [RC] QIDACANDBED Insulin Aspart [NovoLOG] See Protocol SUBCUT ACBED 05/29/17 18:00 Carvedilol [Coreg] 12.5 mg PO BID Methenamine Hippurate 1 gm PO BID glipiZIDE [Glucotrol XL] 2.5 mg PO BID glipiZIDE [Glucotrol XL] 5 mg PO BID 05/30/17 02:00 cefTRIAXone [Rocephin] 1 gm Sodium Chloride 0.9% [Normal Saline] 100 ml IV Q12H 05/30/17 03:00 Blood Glucose Check, Bedside [RC] STAT 05/30/17 08:00 Aspirin [Halfprin] 81 mg PO DAILY Calcium Polycarbophil [Fibercon] 625 mg PO DAILY Docusate Sodium/Sennosides [Senna Plus] 1 tab PO DAILY Hydrochlorothiazide 12.5 mg PO DAILY Lisinopril [Prinivil] 20 mg PO DAILY Pantoprazole [ProTONIX] 40 mg PO DAILY amLODIPine [Norvasc] 5 mg PO DAILY atorvaSTATin [Lipitor] 20 mg PO DAILY 05/30/17 10:05 Ciprofloxacin in D5W [Cipro in D5W 400 MG/200 ML] 400 mg Premix Bag 1 bag IV ONETIME 05/31/17 05:11 BASIC METABOLIC PANEL,BMP [CHEM] Routine CBC WITH AUTO DIFF [HEME] Routine 05/31/17 10:30 Ciprofloxacin in D5W [Cipro in D5W 200 MG/100 ML] 200 mg Premix Bag 1 bag IV Q24H - Assessment Assessment:: As above - Plan Plan:: As above. Extensive precautions were given to the patient, who is in agreement with the treatment plan. Prognosis poor as above. Anticipate additional 3 days of inpatient care secondary to multiple healthcare problems as above
[2017-05-30] MEDS: Enoxaparin 30 MG/0.3 ML Syringe SUBCUT SCH (17:01)
[2017-05-30] MEDS: Lisinopril 10 MG Tab PO SCH (17:01)
[2017-05-30] MEDS: Tamsulosin 0.4 MG Cap.ER PO SCH (17:01)
[2017-05-31] MEDS: cefTRIAXone 1 GM in Sodium Chloride 0.9% 100 ML IV SCH ×2 (01:22→14:59)
[2017-05-31] MEDS: Sodium Chloride 0.9% 10 ML Syringe FLUSH PRN ×3 (01:23→15:05)
[2017-05-31] MEDS: Lisinopril 20 MG Tab PO SCH (08:21)
[2017-05-31] MEDS: glipiZIDE 2.5 MG Tab.ER PO SCH ×2 (08:21→17:48)
[2017-05-31] MEDS: Aspirin 81 MG Tab.EC PO SCH (08:24)
[2017-05-31] MEDS: Carvedilol 25 MG Tab PO SCH ×2 (08:24→17:48)
[2017-05-31] MEDS: atorvaSTATin 10 MG Tab PO SCH (08:24)
[2017-05-31] MEDS: glipiZIDE 5 MG Tab.ER PO SCH ×2 (08:24→17:48)
[2017-05-31] MEDS: Hydrochlorothiazide 25 MG Tab PO SCH (08:25)
[2017-05-31] MEDS: amLODIPine 5 MG Tab PO SCH (08:25)
[2017-05-31] MEDS: Pantoprazole 40 MG Tab.CR PO SCH (08:25)
[2017-05-31] MEDS: Insulin Aspart 100 Units/ML 3 ML Pen SUBCUT SCH ×4 (08:25→20:39)
[2017-05-31] MEDS: Calcium Polycarbophil 625 MG Tab PO SCH (08:25)
--- NOTE | 2017-05-31 09:35 | PCM.PN ---
- General Info Admission Dx/Problem (Free Text): UTI with possibility of urosepsis Subjective Update: Patient is a poor historian Functional Status: Reports: Pain Controlled, Tolerating Diet, Urinating, Incentive Spirometry. Denies: Ambulating, New Symptoms Pain Score: 0 - Review of Systems General: Reports: Fever (Fever resolved this morning), Weakness (Stable generalized), Appetite (Adequate). Denies: Malaise, Chills, Night Sweats HEENT: Reports: Rhinitis. Denies: Ear Pain, Eye Pain, Headaches, Sore Throat, Visual Changes Pulmonary: Reports: No Symptoms. Denies: Shortness of Breath, Pleuritic Chest Pain, Cough, Sputum, Wheezing Cardiovascular: Reports: No Symptoms. Denies: Chest Pain, Palpitations, Dyspnea on Exertion, Orthopnea, Edema Gastrointestinal: Reports: No Symptoms. Denies: Abdominal Pain, Constipation, Decreased Appetite, Diarrhea, Difficulty Swallowing, Flatus, Hematochezia, Melena, Nausea, Vomiting Genitourinary: Reports: Incontinence Musculoskeletal: Reports: No Symptoms. Denies: Neck Pain, Shoulder Pain, Arm Pain, Back Pain, Leg Pain Skin: Reports: No Symptoms. Denies: Cyanosis, Diaphoresis, Bruising Neurological: Reports: Confusion (Stable moderate), Weakness (Stable generalized ) Psychiatric: Reports: Confusion (As above), Agitation (Occasional noncooperative ). Denies: Hallucinations - Patient Data Vitals - Most Recent: Last Vital Signs Temp 36.6 C 05/31/17 08:00 Pulse 79 05/31/17 08:24 Resp 17 05/31/17 08:00 BP 136/67 05/31/17 08:25 Pulse Ox 96 05/31/17 08:00 Vital Signs - 24 hr 05/30/17 05/30/17 05/30/17 09:58 10:01 10:09 Temperature [ Temporal] Pulse, 77 Peripheral Pulse, Peripheral [ Right Pulse Oximetry] Respiratory Rate Blood Pressure 134/73 134/73 134/73 Blood Pressure [Right Upper Arm] O2 Sat by Pulse Oximetry 05/30/17 05/30/17 05/30/17 12:00 15:34 19:42 Temperature [ 37.6 C 37.9 C 37.7 C Temporal] Pulse, Peripheral Pulse, 71 73 Peripheral [ Right Pulse Oximetry] Respiratory 16 12 12 Rate Blood Pressure Blood Pressure 109/47 L 131/54 L 155/74 H [Right Upper Arm] O2 Sat by Pulse 95 93 L 93 L Oximetry 05/31/17 05/31/17 05/31/17 00:00 04:00 08:00 Temperature [ 36.8 C 37.1 C 36.6 C Temporal] Pulse, Peripheral Pulse, 73 73 77 Peripheral [ Right Pulse Oximetry] Respiratory 20 18 17 Rate Blood Pressure Blood Pressure 129/62 141/68 H 136/67 [Right Upper Arm] O2 Sat by Pulse 94 L 94 L 96 Oximetry 05/31/17 05/31/17 05/31/17 08:21 08:24 08:25 Temperature [ Temporal] Pulse, 79 Peripheral Pulse, Peripheral [ Right Pulse Oximetry] Respiratory Rate Blood Pressure 136/67 136/67 136/67 Blood Pressure [Right Upper Arm] O2 Sat by Pulse Oximetry Weight - Most Recent: 101.378 kg I&O - Last 24 Hours: Intake & Output 05/30/17 05/31/17 05/31/17 22:59 06:59 14:59 Intake Total 220 Balance 220 Imaging Impressions - Last 24 Hours: Heart monitor shows normal sinus rhythm with exception of occasional PVCs with average heart rate in the 60s to 70s Lab Results Last 24 Hours: Laboratory Results - last 24 hr 05/30/17 05/30/17 05/30/17 Range/Units 11:34 17:01 20:29 WBC (4.0-10.2) K/uL RBC (4.33-5.41) M/uL Hgb (13.1-16.8) g/dL Hct (39.0-49.0) % MCV (84.0-98.0) fL MCH (28.2-33.3) pg MCHC (31.7-36.0) g/dL RDW (11.2-14.1) % Plt Count (150-350) K/uL Neut % (Auto) (45.0-80.0) % Lymph % (Auto) (10.0-50.0) % [place] % (Auto) (2.0-14.0) % Eos % (Auto) (0.0-5.0) % Baso % (Auto) (0.0-2.0) % Neut # (Auto) (1.40-7.00) K/uL Lymph # (Auto) (0.50-3.50) K/uL [place] # (Auto) (0.00-1.00) K/uL Eos # (Auto) (0.00-0.50) K/uL Baso # (Auto) (0.00-0.20) K/uL Sodium (136-145) mmol/L Potassium (3.5-5.1) mmol/L Chloride (98-107) mmol/L Carbon Dioxide (21.0-32.0) mmol/L BUN (7-18) mg/dL Creatinine (0.51-1.17) mg/dL Est Cr Clr Drug Dosing mL/min Estimated GFR (MDRD) mL/min Glucose (74-106) mg/dL POC Glucose 169 H 96 153 H (65-110) mg/dl Calcium (8.5-10.1) mg/dL 05/31/17 05/31/17 Range/Units 06:58 06:58 WBC 15.4 H (4.0-10.2) K/uL RBC 4.13 L (4.33-5.41) M/uL Hgb 11.7 L (13.1-16.8) g/dL Hct 35.5 L (39.0-49.0) % MCV 86.0 (84.0-98.0) fL MCH 28.3 (28.2-33.3) pg MCHC 33.0 (31.7-36.0) g/dL RDW 13.3 (11.2-14.1) % Plt Count 155 (150-350) K/uL Neut % (Auto) 84.7 H (45.0-80.0) % Lymph % (Auto) 4.8 L (10.0-50.0) % [place] % (Auto) 9.1 (2.0-14.0) % Eos % (Auto) 1.1 (0.0-5.0) % Baso % (Auto) 0.3 (0.0-2.0) % Neut # (Auto) 13.02 H (1.40-7.00) K/uL Lymph # (Auto) 0.74 (0.50-3.50) K/uL [place] # (Auto) 1.40 H (0.00-1.00) K/uL Eos # (Auto) 0.17 (0.00-0.50) K/uL Baso # (Auto) 0.05 (0.00-0.20) K/uL Sodium 140 (136-145) mmol/L Potassium 3.5 (3.5-5.1) mmol/L Chloride 105 (98-107) mmol/L Carbon Dioxide 25.8 (21.0-32.0) mmol/L BUN 26 H (7-18) mg/dL Creatinine 1.54 H (0.51-1.17) mg/dL Est Cr Clr Drug Dosing 42.10 mL/min Estimated GFR (MDRD) 45 mL/min Glucose 74 (74-106) mg/dL POC Glucose (65-110) mg/dl Calcium 8.6 (8.5-10.1) mg/dL Gregorio Results Last 24 Hours: Microbiology 05/29/17 13:40 Blood - Venous Aerobic Blood Culture - Preliminary NO GROWTH AFTER 1 DAY 05/29/17 13:40 Blood - Venous Anaerobic Blood Culture - Preliminary NO GROWTH AFTER 1 DAY 05/29/17 13:40 Nasopharyngeal Swab - Nare, Right Influenza Type A Antigen Screen - Final NEGATIVE INFLUENZA A VIRUS AG 05/29/17 13:40 Nasopharyngeal Swab - Nare, Right Influenza Type B Antigen Screen - Final NEGATIVE INFLUENZA B VIRUS AG Med Orders - Current: Current Medications Acetaminophen (Tylenol) 650 mg PO Q4HR PRN PRN Reason: Fever Last Admin: 05/30/17 20:26 Dose: 650 mg Albuterol (Proventil Neb Soln) 2.5 mg INH Q2H PRN PRN Reason: SHORTNESS OF BREATH Albuterol/Ipratropium (Duoneb 3.0-0.5 Mg/3 Ml) 3 ml NEB Q4HRRT PRN PRN Reason: Dyspnea Amlodipine Besylate (Norvasc) 5 mg PO DAILY [facility] Last Admin: 05/31/17 08:25 Dose: 5 mg Aspirin (Halfprin) 81 mg PO DAILY [facility] Last Admin: 05/31/17 08:24 Dose: 81 mg Atorvastatin Calcium (Lipitor) 20 mg PO DAILY [facility] Last Admin: 05/31/17 08:24 Dose: 20 mg Calcium Polycarbophil (Fibercon) 625 mg PO DAILY [facility] Last Admin: 05/31/17 08:25 Dose: 625 mg Carvedilol (Coreg) 12.5 mg PO BID [facility] Last Admin: 05/31/17 08:24 Dose: 12.5 mg Enoxaparin Sodium (Lovenox) 30 mg SUBCUT Q24H [facility] Last Admin: 05/30/17 17:01 Dose: 30 mg Glipizide (Glucotrol Xl) 5 mg PO BID [facility] Last Admin: 05/31/17 08:24 Dose: 5 mg Glipizide (Glucotrol Xl) 2.5 mg PO BID [facility] Last Admin: 05/31/17 08:21 Dose: 2.5 mg Hydrochlorothiazide (Hydrochlorothiazide) 12.5 mg PO DAILY [facility] Last Admin: 05/31/17 08:25 Dose: 12.5 mg Hydrocortisone (Hydrocortisone 1% Crm) 0 gm TOP BID PRN PRN Reason: Rash Ceftriaxone Sodium 1 gm/ (Sodium Chloride) 100 mls @ 200 mls/hr IV Q12H [facility] Last Admin: 05/31/17 01:22 Dose: 200 mls/hr Ciprofloxacin/Dextrose 200 mg/ (Premix) 100 mls @ 100 mls/hr IV Q24H [facility] Insulin Aspart (Novolog) 0 unit SUBCUT ACBED [facility] PRN Reason: Protocol Last Admin: 05/31/17 08:25 Dose: Not Given Lisinopril (Prinivil) 20 mg PO DAILY [facility] Last Admin: 05/31/17 08:21 Dose: 20 mg Lisinopril (Prinivil) 10 mg PO DAILY@1600 [facility] Last Admin: 05/30/17 17:01 Dose: 10 mg Loperamide HCl (Imodium Ad) 2 mg PO ASDIRECTED PRN PRN Reason: Loose stools Methenamine Hippurate (Methenamine Hippurate) 1 gm PO BID [facility] Last Admin: 05/31/17 08:23 Dose: 1 gm Pantoprazole Sodium (Protonix) 40 mg PO DAILY [facility] Last Admin: 05/31/17 08:25 Dose: 40 mg Senna/Docusate Sodium (Senna Plus) 1 tab PO DAILY [facility] Last Admin: 05/31/17 08:24 Dose: 1 tab Sodium Chloride (Saline Flush) 10 ml FLUSH ASDIRECTED PRN PRN Reason: Keep Vein Open Last Admin: 05/31/17 01:23 Dose: 10 ml Sodium Chloride (Saline Flush) 10 ml FLUSH Q12H PRN PRN Reason: Keep Vein Open Tamsulosin HCl (Flomax) 0.4 mg PO DAILY@1600 [facility] Last Admin: 05/30/17 17:01 Dose: 0.4 mg Temazepam (Restoril) 15 mg PO BEDTIME PRN PRN Reason: Insomnia Last Admin: 05/30/17 20:26 Dose: 15 mg Discontinued Medications Famotidine (Pepcid) 40 mg IVPUSH ONETIME ONE Stop: 05/29/17 14:07 Last Admin: 05/29/17 14:13 Dose: 40 mg Glipizide (Glucotrol Xl) 7.5 mg PO BID [facility] Ceftriaxone Sodium 2 gm/ (Sodium Chloride) 100 mls @ 200 mls/hr IV ONETIME ONE Stop: 05/29/17 13:45 Last Admin: 05/29/17 14:02 Dose: 200 mls/hr Ciprofloxacin/Dextrose 400 mg/ (Premix) 200 mls @ 200 mls/hr IV ONETIME ONE Stop: 05/30/17 11:04 Last Admin: 05/30/17 10:12 Dose: 200 mls/hr Ketorolac Tromethamine (Toradol) 30 mg IVPUSH ONETIME ONE Stop: 05/29/17 14:07 Last Admin: 05/29/17 14:12 Dose: 30 mg - Exam Quality Assessment: DVT Prophylaxis. No: Supplemental Oxygen, Central Line/PICC , Urine Catheter, Skin Breakdown, Restraints General: Alert, Cooperative, No Acute Distress HEENT: Pupils Equal, Pupils Reactive, EOMI, Mucous Membr. Moist/[place] Neck: Supple, Trachea Midline, No JVD, No Thyromegaly. No: Lymphadenopathy Lungs: Clear to Auscultation, Normal Respiratory Effort. No: Rub Cardiovascular: Regular Rate, Regular Rhythm, No Murmurs. No: Gallops, Rubs GI/Abdominal Exam: Normal Bowel Sounds, Soft, Non-Tender, No Organomegaly, No Distention, No Abnormal Bruit, No Mass, Pelvis Stable, Hernia (3 cm nonincarcerated umbilical hernia), Other (Obese) (Male) Exam: Deferred Back Exam: Normal Inspection, Full Range of Motion. No: CVA Tenderness (L), CVA Tenderness (R), Muscle Spasm Extremities: Normal Inspection, Normal Range of Motion, Non-Tender, No Pedal Edema, Normal Capillary Refill. No: Emely's Sign Peripheral Pulses: 2+: Radial (L), Radial (R) Skin: Warm, Dry, Intact Neurological: No New Focal Deficit, Other (Stable moderate confusion) Psy/Mental Status: Agitated (Occasional) - Problem List & Annotations (1) UTI (urinary tract infection) SNOMED Code(s): 58830735 Code(s): N39.0 - URINARY TRACT INFECTION, SITE NOT SPECIFIED Status: Acute Priority: High Current Visit: Yes Onset Date: 05/29/17 Qualifiers: Urinary tract infection type: acute cystitis Hematuria presence: with hematuria Qualified Code(s): N30.01 - Acute cystitis with hematuria Annotation/Comment:: Significantly improved leukocytosis with additional IV Cipro therapy. History of recurrent UTIs with possible urosepsis, however clinically stable at this time at this time with negative blood cultures to this point. Note comfort care status only with extremely poor long-term prognosis at this time. No beds are available at the [facility] in [place] once again today with continued care in this facility. Remy Larsen M.D., at the [facility], with likely discharge back to the [facility] in [place] tomorrow, if he continues to improve. Mild lactic acid elevation on admission has resolved. High-dose IV Rocephin therapy initiated in the emergency room with continuation of standard regimen along with Cipro as above. Urine specimen set up for culture and sensitivity. Telephone consultation at 14:35 hours on 05/29/17 with Vickie, inpatient coordinator from the [facility], with no bed available in their facility. (2) Lactic acid acidosis SNOMED Code(s): 81812075 Code(s): E87.2 - ACIDOSIS Status: Acute Priority: High Current Visit: Yes Onset Date: 05/29/17 Annotation/Comment:: As above. No clinical evidence of sepsis despite significant leukocytosis as above (3) Comfort measures only status SNOMED Code(s): 05297870863592 Code(s): Z51.5 - ENCOUNTER FOR PALLIATIVE CARE Status: Chronic Priority: Medium Current Visit: Yes Annotation/Comment:: Comfort care only, however patient does agree to transfer to the ID in hospital when bed is available (4) HTN, Benign hypertension SNOMED Code(s): 48882451 Code(s): I10 - ESSENTIAL (PRIMARY) HYPERTENSION Status: Acute Priority: Medium Current Visit: Yes Annotation/Comment:: Blood pressures under reasonably good control in the emergency room, although occasionally elevated. Observe for now (5) Diabetes mellitus type 2 SNOMED Code(s): 84350619 Code(s): E11.9 - TYPE 2 DIABETES MELLITUS WITHOUT COMPLICATIONS Status: Acute Current Visit: No Annotation/Comment:: Blood sugars are under good control during this hospitalization with no evidence of hypoglycemia at 3 AM this morning. Sliding scale is in effect. Glycosylated hemoglobin conducted on admission (6) Heart disease SNOMED Code(s): 04215748 Code(s): I51.9 - HEART DISEASE, UNSPECIFIED Status: Acute Priority: Medium Current Visit: Yes Annotation/Comment:: No anginal complaints at this time (7) Peptic reflux disease SNOMED Code(s): 67992603 Code(s): K21.9 - GASTRO-ESOPHAGEAL REFLUX DISEASE WITHOUT ESOPHAGITIS Status: Acute Priority: Medium Current Visit: Yes Annotation/Comment:: Stable by history with previous history of lower GI bleed secondary to diverticulitis. No abdominal complaints at this time despite his umbilical hernia. High-dose IV Pepcid given as GI prophylaxis secondary to IV Toradol given in the emergency room for his headache and fever. No further IV Pepcid required with current Tylenol therapy. Continue oral Protonix as previous home medication (8) Mental disorder SNOMED Code(s): 01614671 Code(s): F99 - MENTAL DISORDER, NOT OTHERWISE SPECIFIED Status: Acute Priority: High Current Visit: Yes Annotation/Comment:: Some problems with memory secondary to distant CVA as per emergency room note. Stable confusion today secondary to his current infection. 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 No headache today. No direct evidence of repeat CVA by clinical exam with continued close observation of his neurological status (10) COPD (chronic obstructive pulmonary disease) SNOMED Code(s): 21772929 Code(s): J44.9 - CHRONIC OBSTRUCTIVE PULMONARY DISEASE, UNSPECIFIED Status : Chronic Priority: Medium Current Visit: Yes Qualifiers: COPD type: emphysema Emphysema type: panlobular Qualified Code(s): J43.1 - Panlobular emphysema Annotation/Comment:: COPD by chest x-ray with no recent bronchitic-type symptoms , etc. When necessary nebulizer treatments in effect. Note aggressive antibiotic therapy as above for his possible urosepsis (11) Hyperuricemia SNOMED Code(s): 21644321 Code(s): E79.0 - HYPERURICEMIA W/O SIGNS OF INFLAM ARTHRIT AND TOPHACEOUS DIS Status: Chronic Priority: Medium Current Visit: Yes Onset Date: Annotation/Comment:: No previous history of gout attacks. Osteoarthritis stable by history (12) Hypoalbuminemia SNOMED Code(s): 263337797 Code(s): E88.09 - OTH DISORDERS OF PLASMA-PROTEIN METABOLISM, NEC Status: Chronic Priority: Medium Current Visit: Yes Annotation/Comment:: High- protein Glucerna supplements as snacks initiated on admission (13) PVCs (premature ventricular contractions) SNOMED Code(s): 80105478 Code(s): I49.3 - VENTRICULAR PREMATURE DEPOLARIZATION Status: Acute Priority: Medium Current Visit: Yes Onset Date: 05/30/17 Annotation/ Comment:: Occasional nonsymptomatic PVCs noted. Observe for now. Note current beta yasmin therapy. Continue telemetry for now secondary to possible sepsis as above (14) Renal insufficiency SNOMED Code(s): 670764924 Code(s): N28.9 - DISORDER OF KIDNEY AND URETER, UNSPECIFIED Status: Chronic Priority: High Current Visit: Yes Annotation/Comment:: Continue to observe closely secondary to antibiotic therapy as above. Repeat blood work in the a.m. Note history of diabetic nephropathy - Problem List Review Problem List Initiated/Reviewed/Updated: Yes - My Orders Last 24 Hours: My Active Orders 05/31/17 10:00 Ciprofloxacin in D5W [Cipro in D5W 200 MG/100 ML] 200 mg Premix Bag 1 bag IV Q24H - Assessment Assessment:: As above - Plan Plan:: As above. Extensive precautions were given to the patient, who is in agreement with the treatment plan. Prognosis poor as above. Anticipate additional 1-2 days of inpatient care secondary to multiple healthcare problems as above
[2017-05-31] MEDS: Ciprofloxacin in D5W 200 MG in Premix Bag 1 BAG IV SCH ×2 (10:16)
[2017-05-31] MEDS: Tamsulosin 0.4 MG Cap.ER PO SCH (15:09)
[2017-05-31] MEDS: Enoxaparin 30 MG/0.3 ML Syringe SUBCUT SCH (15:09)
[2017-05-31] MEDS: Lisinopril 10 MG Tab PO SCH (15:09)
[2017-06-01] MEDS: cefTRIAXone 1 GM in Sodium Chloride 0.9% 100 ML IV SCH (01:03)
[2017-06-01] MEDS: Lisinopril 20 MG Tab PO SCH (07:40)
[2017-06-01] MEDS: atorvaSTATin 10 MG Tab PO SCH (07:40)
[2017-06-01] MEDS: Aspirin 81 MG Tab.EC PO SCH (07:40)
[2017-06-01] MEDS: Calcium Polycarbophil 625 MG Tab PO SCH (07:40)
[2017-06-01] MEDS: Pantoprazole 40 MG Tab.CR PO SCH (07:41)
[2017-06-01] MEDS: glipiZIDE 2.5 MG Tab.ER PO SCH (07:41)
[2017-06-01] MEDS: Hydrochlorothiazide 25 MG Tab PO SCH (07:41)
[2017-06-01] MEDS: glipiZIDE 5 MG Tab.ER PO SCH (07:41)
[2017-06-01] MEDS: amLODIPine 5 MG Tab PO SCH (07:41)
[2017-06-01] MEDS: Carvedilol 25 MG Tab PO SCH (07:42)
[2017-06-01] MEDS: Insulin Aspart 100 Units/ML 3 ML Pen SUBCUT SCH (07:42)
[2017-06-01 08:00] VITALS: BP 156/87
[2017-06-01] MEDS: Ciprofloxacin in D5W 200 MG in Premix Bag 1 BAG IV SCH ×2 (11:22)
--- NOTE | 2017-06-06 13:39 | PCM.DCSUM1 ---
Discharge Summary - Hospital Course Free Text/Narrative:: Patient admitted with UTI with hematuria. Patient's WBC is normal today. Patient is asymptomatic on comfort care only status. Will continue antibiotics as an outpatient. Patient will be sent home on cipro and cefzil. Patient is clinically stable with negative blood cultures. His urine showed E.Coli. Patient positive for MRSA. - Discharge Data Discharge Date: 06/01/17 Discharge Disposition: DC/Tfer to [facility] 03 Condition: Good - Discharge Diagnosis/Problem(s) (1) UTI (urinary tract infection) SNOMED Code(s): 34736958 ICD Code: N39.0 - URINARY TRACT INFECTION, SITE NOT SPECIFIED Status: Acute Priority: High Onset Date: 05/29/17 Problem Details: WBC within normal range. E.Coli present in Urine. Will continue antibiotic therapy as an outpatient. Qualifiers: Urinary tract infection type: acute cystitis Hematuria presence: with hematuria Qualified Code(s): N30.01 - Acute cystitis with hematuria - Patient Instructions Diet: Diabetic Diet Activity: As Tolerated Notify Provider of: Fever - Discharge Plan Prescriptions/Med Rec: Cefprozil [Cefzil] 500 mg PO Q12HR 7 Days #14 tablet Ciprofloxacin HCl [Cipro] 500 mg PO BIDAC 7 Days #14 tablet Insulin Aspart [NovoLOG] 0 unit SUBCUT ACBED 30 Days #5 pen Home Medications: Home Meds Calcium Polycarbophil [Fibercon] 625 mg PO DAILY 04/02/14 [History] Carvedilol [Coreg] 12.5 mg PO BID 04/02/14 [History] Hydrochlorothiazide 12.5 mg PO DAILY 04/02/14 [History] Methenamine Hippurate 1 gm PO BID 04/02/14 [History] Tamsulosin [Flomax] 0.4 mg PO DAILY@1600 04/02/14 [History] atorvaSTATin [Lipitor] 20 mg PO 0800 04/02/14 [History] glipiZIDE [Glipizide ER] 7.5 mg PO BID 04/02/14 [History] Acetaminophen [Tylenol] 650 mg PO Q4HR PRN #14 tablet 09/30/14 [Rx] Lisinopril 20 mg PO DAILY 09/30/14 [History] Pantoprazole [ProTONIX] 40 mg PO DAILY 09/30/14 [History] amLODIPine [Norvasc] 5 mg PO DAILY 09/30/14 [History] Aspirin [Halfprin] 81 mg PO DAILY 05/29/17 [History] Hydrocortisone [Hydrocortisone 1% Crm] 1 dose TOP BID PRN 05/29/17 [History] Lisinopril [Prinivil] 10 mg PO DAILY@1600 05/29/17 [History] Loperamide HCl [Imodium A-D] 2 mg PO ASDIRECTED PRN 05/29/17 [History] Mag Hydrox/Al Hydrox/Simeth [Antacid M Liquid] 15 - 20 ml PO QID PRN 05/29/17 [ History] Sennosides/Docusate Sodium [Senna S Tablet] 1 each PO DAILY 05/29/17 [History] Albuterol [IJD: Albuterol] 2.5 mg INH Q2H PRN nebule 06/01/17 [Rx] Albuterol/Ipratropium [DuoNeb 3.0-0.5 MG/3 ML] 3 ml NEB Q4HRRT PRN neb [Rx] Cefprozil [Cefzil] 500 mg PO Q12HR 7 Days #14 tablet 06/01/17 [Rx] Ciprofloxacin HCl [Cipro] 500 mg PO BIDAC 7 Days #14 tablet 06/01/17 [Rx] Insulin Aspart [NovoLOG] 0 unit SUBCUT ACBED 30 Days #5 pen 06/01/17 [Rx] glipiZIDE [Glucotrol XL] 2.5 mg PO BID tab.er 06/01/17 [Rx] glipiZIDE [Glucotrol XL] 5 mg PO BID tab.er 06/01/17 [Rx] Forms: ED Department Discharge Referrals: Mariam Manjarrez MD [Primary Care Provider] - - General Info Date of Service: 06/01/17 Subjective Update: Patient is poor historian. - Review of Systems General: Reports: No Symptoms HEENT: Reports: No Symptoms Pulmonary: Reports: No Symptoms Cardiovascular: Reports: No Symptoms Gastrointestinal: Reports: No Symptoms Genitourinary: Denies: Burning, Pain, Urgency Musculoskeletal: Reports: No Symptoms Skin: Reports: No Symptoms - Patient Data Vitals - Most Recent: Last Vital Signs Temp 98.6 F 06/01/17 07:59 Pulse 76 06/01/17 07:59 Resp 18 06/01/17 07:59 BP 156/87 H 06/01/17 07:59 Pulse Ox 94 L 06/01/17 07:59 Weight - Most Recent: 223 lb Med Orders - Current: Current Medications Discontinued Medications Acetaminophen (Tylenol) 650 mg PO Q4HR PRN PRN Reason: Fever Last Admin: 05/30/17 20:26 Dose: 650 mg Albuterol (Proventil Neb Soln) 2.5 mg INH Q2H PRN PRN Reason: SHORTNESS OF BREATH Albuterol/Ipratropium (Duoneb 3.0-0.5 Mg/3 Ml) 3 ml NEB Q4HRRT PRN PRN Reason: Dyspnea Amlodipine Besylate (Norvasc) 5 mg PO DAILY [facility] Last Admin: 06/01/17 07:41 Dose: 5 mg Aspirin (Halfprin) 81 mg PO DAILY [facility] Last Admin: 06/01/17 07:40 Dose: 81 mg Atorvastatin Calcium (Lipitor) 20 mg PO DAILY [facility] Last Admin: 06/01/17 07:40 Dose: 20 mg Calcium Polycarbophil (Fibercon) 625 mg PO DAILY [facility] Last Admin: 06/01/17 07:40 Dose: 625 mg Carvedilol (Coreg) 12.5 mg PO BID [facility] Last Admin: 06/01/17 07:42 Dose: 12.5 mg Enoxaparin Sodium (Lovenox) 30 mg SUBCUT Q24H [facility] Last Admin: 05/31/17 15:09 Dose: 30 mg Famotidine (Pepcid) 40 mg IVPUSH ONETIME ONE Stop: 05/29/17 14:07 Last Admin: 05/29/17 14:13 Dose: 40 mg Glipizide (Glucotrol Xl) 7.5 mg PO BID [facility] Glipizide (Glucotrol Xl) 5 mg PO BID [facility] Last Admin: 06/01/17 07:41 Dose: 5 mg Glipizide (Glucotrol Xl) 2.5 mg PO BID [facility] Last Admin: 06/01/17 07:41 Dose: 2.5 mg Hydrochlorothiazide (Hydrochlorothiazide) 12.5 mg PO DAILY [facility] Last Admin: 06/01/17 07:41 Dose: 12.5 mg Hydrocortisone (Hydrocortisone 1% Crm) 0 gm TOP BID PRN PRN Reason: Rash Ceftriaxone Sodium 2 gm/ (Sodium Chloride) 100 mls @ 200 mls/hr IV ONETIME ONE Stop: 05/29/17 13:45 Last Admin: 05/29/17 14:02 Dose: 200 mls/hr Ceftriaxone Sodium 1 gm/ (Sodium Chloride) 100 mls @ 200 mls/hr IV Q12H [facility] Last Admin: 06/01/17 01:03 Dose: 200 mls/hr Ciprofloxacin/Dextrose 400 mg/ (Premix) 200 mls @ 200 mls/hr IV ONETIME ONE Stop: 05/30/17 11:04 Last Admin: 05/30/17 10:12 Dose: 200 mls/hr Ciprofloxacin/Dextrose 200 mg/ (Premix) 100 mls @ 100 mls/hr IV Q24H [facility] Last Admin: 06/01/17 11:22 Dose: Not Given Insulin Aspart (Novolog) 0 unit SUBCUT ACBED [facility] PRN Reason: Protocol Last Admin: 06/01/17 07:42 Dose: Not Given Ketorolac Tromethamine (Toradol) 30 mg IVPUSH ONETIME ONE Stop: 05/29/17 14:07 Last Admin: 05/29/17 14:12 Dose: 30 mg Lisinopril (Prinivil) 20 mg PO DAILY [facility] Last Admin: 06/01/17 07:40 Dose: 20 mg Lisinopril (Prinivil) 10 mg PO DAILY@1600 [facility] Last Admin: 05/31/17 15:09 Dose: 10 mg Loperamide HCl (Imodium Ad) 2 mg PO ASDIRECTED PRN PRN Reason: Loose stools Methenamine Hippurate (Methenamine Hippurate) 1 gm PO BID [facility] Last Admin: 06/01/17 07:40 Dose: 1 gm Pantoprazole Sodium (Protonix) 40 mg PO DAILY [facility] Last Admin: 06/01/17 07:41 Dose: 40 mg Senna/Docusate Sodium (Senna Plus) 1 tab PO DAILY [facility] Last Admin: 06/01/17 07:40 Dose: 1 tab Sodium Chloride (Saline Flush) 10 ml FLUSH ASDIRECTED PRN PRN Reason: Keep Vein Open Last Admin: 05/31/17 15:05 Dose: 10 ml Sodium Chloride (Saline Flush) 10 ml FLUSH Q12H PRN PRN Reason: Keep Vein Open Last Admin: 06/01/17 01:04 Dose: 10 ml Tamsulosin HCl (Flomax) 0.4 mg PO DAILY@1600 [facility] Last Admin: 05/31/17 15:09 Dose: 0.4 mg Temazepam (Restoril) 15 mg PO BEDTIME PRN PRN Reason: Insomnia Last Admin: 05/30/17 20:26 Dose: 15 mg - Exam General: Reports: Alert, Cooperative HEENT: Reports: Pupils Equal, Pupils Reactive, EOMI, Mucous Membr. Moist/[place] Neck: Reports: Supple Lungs: Reports: Clear to Auscultation, Normal Respiratory Effort Cardiovascular: Reports: Regular Rate, Regular Rhythm GI/Abdominal Exam: Normal Bowel Sounds, Soft, Non-Tender, No Organomegaly, No Distention, No Abnormal Bruit, No Mass, Pelvis Stable, Other (umbilical hernia) (Male) Exam: Deferred Rectal (Males) Exam: Deferred Back Exam: Reports: Normal Inspection, Full Range of Motion Extremities: Normal Inspection, Normal Range of Motion, Non-Tender, No Pedal Edema, Normal Capillary Refill Skin: Reports: Warm, Dry, Intact Neurological: Reports: No New Focal Deficit (intermittent confusion) Psy/Mental Status: Reports: Agitated (at times ) *Q Meaningful Use (DIS) - VTE *Q VTE Criteria *Q: - Stroke *Q Stroke Criteria *Q: - AMI *Q AMI Criteria *Q:
== END 2017-06-01 11:33 | DRG 690 ==
LOC: LL.ED 12:42 → LL.MS 14:45
PROVIDERS: ADMIT Family Medicine; ATTEND Family Medicine
DX: N30.01 Acute cystitis with hematuria (principal); I42.9 Cardiomyopathy, unspecified; E87.2 Acidosis; I69.354 Hemiplegia and hemiparesis following cerebral infarction affecting left non-dominant side; Z79.82 Long term (current) use of aspirin; Z79.899 Other long term (current) drug therapy; I25.10 Atherosclerotic heart disease of native coronary artery without angina pectoris; E78.00 Pure hypercholesterolemia, unspecified; N40.1 Benign prostatic hyperplasia with lower urinary tract symptoms; R33.8 Other retention of urine; K59.09 Other constipation; I12.9 Hypertensive chronic kidney disease with stage 1 through stage 4 chronic kidney disease, or unspecified chronic kidney disease; E11.22 Type 2 diabetes mellitus with diabetic chronic kidney disease; N18.9 Chronic kidney disease, unspecified; E11.21 Type 2 diabetes mellitus with diabetic nephropathy; M19.90 Unspecified osteoarthritis, unspecified site; D64.9 Anemia, unspecified; Z51.5 Encounter for palliative care; K21.9 Gastro-esophageal reflux disease without esophagitis; J44.9 Chronic obstructive pulmonary disease, unspecified; I49.3 Ventricular premature depolarization; E79.0 Hyperuricemia without signs of inflammatory arthritis and tophaceous disease; Z79.84 Long term (current) use of oral hypoglycemic drugs; H91.90 Unspecified hearing loss, unspecified ear; H54.7 Unspecified visual loss; F32.9 Major depressive disorder, single episode, unspecified; F41.9 Anxiety disorder, unspecified; E03.9 Hypothyroidism, unspecified; Z87.891 Personal history of nicotine dependence
CPT/HCPCS: 36415; 71010; 80048; 80053; 81001; 82009; 82962; 83036; 83605; 83735; 83880; 84550; 85025; 86140; 87040; 87086; 87088; 87186; 87641; 87804; 96374; 96375; 99285; A9270-GY; J0696; J0744; J1650; J1815-GY; J1885; J7050; S0028

== ENCOUNTER 2018-02-20 18:56 | Emergency (ER) | payer OTHER ==
[2018-02-20 18:59] VITALS: BP 108/57
[2018-02-20 19:54] LABS: CHLORIDE,CL 104 mmol/L (98-107); SODIUM,NA 139 mmol/L (136-145)
--- NOTE | 2018-02-20 20:26 | EDM.PDOC ---
ED HPI GENERAL MEDICAL PROBLEM - General Chief Complaint: General Stated Complaint: Headache, Stomach Ache Time Seen by Provider: 02/20/18 19:00 Source of Information: Reports: Patient, RN Notes Reviewed History Limitations: Reports: Altered Mental Status - History of Present Illness INITIAL COMMENTS - FREE TEXT/NARRATIVE: Patient is a 72-year-old gentleman who [facility] secondary changes in cognitive ability hyperglycemia patient answered all questions appropriately he was aware of time and place Duration: Day(s): Severity: Mild Associated Symptoms: Reports: Confusion (Not seen in initial interview), Nausea/ Vomiting (Result with medications at home) - Related Data Allergies Allergy/AdvReac Type Severity Reaction Status Date / Time No Known Allergies Allergy Verified 09/30/14 19:33 Home Meds: Home Meds Calcium Polycarbophil [Fibercon] 625 mg PO DAILY 04/02/14 [History] Carvedilol [Coreg] 12.5 mg PO BID 04/02/14 [History] Hydrochlorothiazide 12.5 mg PO DAILY 04/02/14 [History] Methenamine Hippurate 1 gm PO BID 04/02/14 [History] Tamsulosin [Flomax] 0.4 mg PO DAILY@1600 04/02/14 [History] atorvaSTATin [Lipitor] 20 mg PO 0800 04/02/14 [History] glipiZIDE [Glipizide ER] 7.5 mg PO BID 04/02/14 [History] Acetaminophen [Tylenol] 650 mg PO Q4HR PRN #14 tablet 09/30/14 [Rx] Lisinopril 20 mg PO DAILY 09/30/14 [History] Pantoprazole [ProTONIX] 40 mg PO DAILY 09/30/14 [History] amLODIPine [Norvasc] 5 mg PO DAILY 09/30/14 [History] Aspirin [Halfprin] 81 mg PO DAILY 05/29/17 [History] Hydrocortisone [Hydrocortisone 1% Crm] 1 dose TOP BID PRN 05/29/17 [History] Lisinopril [Prinivil] 10 mg PO DAILY@1600 05/29/17 [History] Loperamide HCl [Imodium A-D] 2 mg PO ASDIRECTED PRN 05/29/17 [History] Mag Hydrox/Al Hydrox/Simeth [Antacid M Liquid] 15 - 20 ml PO QID PRN 05/29/17 [ History] Sennosides/Docusate Sodium [Senna-S Tablet] 1 each PO DAILY 05/29/17 [History] Cefprozil [Cefzil] 500 mg PO Q12HR 7 Days #14 tablet 06/01/17 [Rx] Past Medical History HEENT History: Reports: Hard of Hearing, Impaired Vision, Other (See Below) Other HEENT History: Wears reading glasses, bilateral presbycusis with no current therapy Cardiovascular History: Reports: CAD, Cardiomyopathy, High Cholesterol, Hypertension Respiratory History: Reports: None Gastrointestinal History: Reports: Chronic Constipation, Colon Polyp, Diverticulosis, Gastritis, GERD, GI Bleed, PUD, Other (See Below) Other Gastrointestinal History: Lower GI bleed secondary to diverticulitis on Genitourinary History: Reports: BPH, Chronic Renal Insuffiency, Diabetic Nephropathy, Renal Calculus, Retention, Urinary, Urinary Incontinence, UTI, Recurrent, Other (See Below) Other Genitourinary History: BPH with history of PSA elevation and secondary urinary retention and incontinence, chronic bilateral hydroceles Musculoskeletal History: Reports: Back Pain, Chronic, Neck Pain, Chronic, Osteoarthritis Neurological History: Reports: CVA, Other (See Below) Other Neuro History: 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 Psychiatric History: Reports: Anxiety, Depression, Emotional Problems Endocrine/Metabolic History: Reports: Diabetes, Type II Hematologic History: Reports: Anemia, Blood Transfusion(s), Other (See Below) Other Hematologic History: Possible previous blood transfusion secondary to lower GI bleed in March 2014 Oncologic (Cancer) History: Reports: Other (See Below) Other Oncologic History: Denies cancer history although note BPH with PSA elevation by history Dermatologic History: Reports: Chronic Cellulitis, Other (See Below) Other Dermatologic History: Chronic tinea in the perineal and testicle region, actinic keratoses - Infectious Disease History Infectious Disease History: Reports: Chicken Pox, Measles, Mumps - Past Surgical History HEENT Surgical History: Reports: Myringotomy w Tube(s), Oral Surgery, Other ( See Below) Other HEENT Surgeries/Procedures: Bilateral PE tubes as a child, [place] teeth extraction GI Surgical History: Reports: Colonoscopy, Other (See Below) Other GI Surgeries/Procedures: Last colonoscopy in April 2014 at the [facility], EGD in April 2014 at the [facility] Male Surgical History: Reports: TURP-Transurethral Resection of Prostate - History Comment History Comment: Unable to obtain complete history secondary to patient's mental status and uncooperativeness Social & Family History - Family History Family Medical History: Unobtainable - Tobacco Use Smoking Status *Q: Unknown Ever Smoked - Living Situation & Occupation Living situation: Reports: (2 children), Extended Care Facility ([facility] [place]) 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) ED ROS GENERAL - Review of Systems Review Of Systems: See Below Constitutional: Reports: No Symptoms HEENT: Reports: No Symptoms Respiratory: Reports: No Symptoms Cardiovascular: Reports: No Symptoms Endocrine: Reports: High Glucose GI/Abdominal: Reports: No Symptoms : Reports: No Symptoms Musculoskeletal: Reports: No Symptoms Skin: Reports: No Symptoms Neurological: Reports: No Symptoms ED EXAM, GENERAL - Physical Exam Exam: See Below Exam Limited By: No Limitations General Appearance: Alert, WD/WN, No Apparent Distress Ears: Normal External Exam, Normal Canal, Hearing Grossly Normal, Normal TMs Ear Exam: Bilateral Ear: Auricle Normal, Canal Normal, TM normal Nose: Normal Inspection, Normal Mucosa, No Blood Throat/Mouth: Normal Inspection, Normal Lips, Normal Teeth, Normal Gums, Normal Oropharynx, Normal Voice, No Airway Compromise Head: Atraumatic, Normocephalic Neck: Normal Inspection, Supple, Non-Tender, Full Range of Motion Respiratory/Chest: No Respiratory Distress, Lungs Clear, Normal Breath Sounds, No Accessory Muscle Use, Chest Non-Tender Cardiovascular: Normal Peripheral Pulses, Regular Rate, Rhythm, No Edema, No Gallop, No JVD, No Murmur, No Rub GI/Abdominal: Normal Bowel Sounds, Soft, Non-Tender, No Organomegaly, No Distention, No Abnormal Bruit, No Mass (Male) Exam: No Hernia, Normal Inspection, Normal Prostate, Circumcised Rectal (Males) Exam: Deferred Back Exam: Decreased Range of Motion Extremities: Normal Inspection, Normal Range of Motion, Non-Tender, Normal Capillary Refill, No Pedal Edema Neurological: Alert, Oriented, CN II-XII Intact, Normal Cognition, Normal Gait, Normal Reflexes, No Motor/Sensory Deficits Psychiatric: Normal Affect, Normal Mood Skin Exam: Warm, Dry, Intact, Normal Color, No Rash Lymphatic: No Adenopathy Course - Vital Signs Last Recorded V/S: Last Vital Signs Temp 98.1 F 02/20/18 18:56 Pulse 70 02/20/18 18:56 Resp 16 02/20/18 18:56 BP 108/57 L 02/20/18 18:56 Pulse Ox 96 02/20/18 18:56 - Orders/Labs/Meds Labs: Laboratory Tests 02/20/18 02/20/18 Range/Units 19:25 19:25 WBC 8.7 (4.0-10.2) K/uL RBC 4.60 (4.33-5.41) M/uL Hgb 13.1 (13.1-16.8) g/dL Hct 39.6 (39.0-49.0) % MCV 86.1 (84.0-98.0) fL MCH 28.5 (28.2-33.3) pg MCHC 33.1 (31.7-36.0) g/dL RDW 13.1 (11.2-14.1) % Plt Count 221 (150-350) K/uL Neut % (Auto) 68.2 (45.0-80.0) % Lymph % (Auto) 18.0 (10.0-50.0) % [place] % (Auto) 10.3 (2.0-14.0) % Eos % (Auto) 2.9 (0.0-5.0) % Baso % (Auto) 0.6 (0.0-2.0) % Neut # (Auto) 5.91 (1.40-7.00) K/uL Lymph # (Auto) 1.56 (0.50-3.50) K/uL [place] # (Auto) 0.89 (0.00-1.00) K/uL Eos # (Auto) 0.25 (0.00-0.50) K/uL Baso # (Auto) 0.05 (0.00-0.20) K/uL Sodium 139 (136-145) mmol/L Potassium 4.5 (3.5-5.1) mmol/L Chloride 104 (98-107) mmol/L Carbon Dioxide 22.8 (21.0-32.0) mmol/L BUN 32 H (7-18) mg/dL Creatinine 1.73 H (0.51-1.17) mg/dL Est Cr Clr Drug Dosing TNP Estimated GFR (MDRD) 39 mL/min Glucose 221 H (74-106) mg/dL Calcium 9.0 (8.5-10.1) mg/dL Total Bilirubin 0.4 (0.2-1.0) mg/dL AST 11 L (15-37) U/L ALT 17 (12-78) U/L Alkaline Phosphatase 108 (46-116) IU/L Total Protein 7.9 (6.4-8.2) g/dL Albumin 3.4 (3.4-5.0) g/dL Departure - Departure Time of Disposition: 20:26 Disposition: Home, Self-Care 01 Condition: Fair Clinical Impression: Hyperglycemia, Diabetes mellitus type 2, Renal insufficiency - Discharge Information Referrals: Mariam Manjarrez MD [Primary Care Provider] - Care Plan Goals: Patient will be sent home he is to increase his oral intake of water or electrolytes like Gatorade G2 at least 2 L a day recheck panel 6 in a week.
== END 2018-02-20 20:50 | disposition home or self-care (01) ==
LOC: LL.ED 18:56
DX: E11.65 Type 2 diabetes mellitus with hyperglycemia (principal); N28.9 Disorder of kidney and ureter, unspecified; E78.00 Pure hypercholesterolemia, unspecified; I10 Essential (primary) hypertension; Z79.899 Other long term (current) drug therapy; Z79.82 Long term (current) use of aspirin
CPT/HCPCS: 36415; 80053; 85025; 99285

== ENCOUNTER 2018-12-18 08:40 | Emergency (ER) | payer MEDICARE, OTHER ==
[2018-12-18 09:36] VITALS: BP 128/48
--- NOTE | 2018-12-18 09:58 | EDM.PDOC ---
ED HPI GENERAL MEDICAL PROBLEM - General Chief Complaint: Upper Extremity Injury/Pain Stated Complaint: Left shouder pain Time Seen by Provider: 12/18/18 08:58 Source of Information: Reports: Other ([facility] staff) History Limitations: Reports: Altered Mental Status (dementia, poor history recall, very cranky) - History of Present Illness INITIAL COMMENTS - FREE TEXT/NARRATIVE: Patient wished to be seen in ER today and have left shoulder checked. Reportedly fell about one week ago, landed on left side. Has been seen by own provider on half-way rounds, was given steroids IM yesterday. Other than favoring the left arm/shoulder has been at his normal baseline and otherwise functioning per usual. No complaint on numbness/tingling. He stated to staff that he wants a shot "in the shoulder" for the pain. Cognitive impairment. [facility] staff relayed that patient is usually cranky and easily agitated. Left Shoulder Pain Score (Numeric/FACES): 8 - Related Data Allergies Allergy/AdvReac Type Severity Reaction Status Date / Time No Known Allergies Allergy Verified 12/18/18 08:47 Home Meds: Home Meds Calcium Polycarbophil [Fibercon] 625 mg PO DAILY 04/02/14 [History] Carvedilol [Coreg] 12.5 mg PO BID 04/02/14 [History] Methenamine Hippurate 1 gm PO BID 04/02/14 [History] Tamsulosin [Flomax] 0.4 mg PO DAILY@1600 04/02/14 [History] atorvaSTATin [Lipitor] 20 mg PO 0800 04/02/14 [History] glipiZIDE [Glipizide ER] 7.5 mg PO BID 04/02/14 [History] hydroCHLOROthiazide [Hydrochlorothiazide] 12.5 mg PO DAILY 04/02/14 [History] Lisinopril 20 mg PO DAILY 09/30/14 [History] Pantoprazole [ProTONIX] 40 mg PO DAILY 09/30/14 [History] Aspirin [Halfprin] 81 mg PO DAILY 05/29/17 [History] Hydrocortisone [Hydrocortisone 1% Crm] 1 dose TOP BID PRN 05/29/17 [History] Lisinopril [Prinivil] 10 mg PO DAILY@1600 05/29/17 [History] Loperamide HCl [Imodium A-D] 2 mg PO ASDIRECTED PRN 05/29/17 [History] Mag Hydrox/Al Hydrox/Simeth [Antacid M Liquid] 15 - 20 ml PO QID PRN 05/29/17 [ History] Sennosides/Docusate Sodium [Senna-S Tablet] 1 each PO DAILY 05/29/17 [History] Acetaminophen [Tylenol] 650 mg PO Q4HR PRN 12/18/18 [History] Bisacodyl [Dulcolax] 5 - 10 mg PO DAILY PRN 12/18/18 [History] Bisacodyl [Dulcolax] 10 mg RC DAILY PRN 12/18/18 [History] Cholecalciferol (Vitamin D3) [Vitamin D3] 2,000 unit PO DAILY 12/18/18 [History] Dextran 70/Hypromellose [Artificial Tears Eye Drops] 2 drop OP Q4H 12/18/18 [ History] Escitalopram [Lexapro] 10 mg PO DAILY 12/18/18 [History] Finasteride 5 mg PO DAILY 12/18/18 [History] Menthol [[place] Sugar Free] 1 emma PO Q2H PRN 12/18/18 [History] Past Medical History HEENT History: Reports: Hard of Hearing, Impaired Vision, Other (See Below) Other HEENT History: Wears reading glasses, bilateral presbycusis with no current therapy Cardiovascular History: Reports: CAD, Cardiomyopathy, High Cholesterol, Hypertension Respiratory History: Reports: None Gastrointestinal History: Reports: Chronic Constipation, Colon Polyp, Diverticulosis, Gastritis, GERD, GI Bleed, PUD, Other (See Below) Other Gastrointestinal History: Lower GI bleed secondary to diverticulitis on Genitourinary History: Reports: BPH, Chronic Renal Insuffiency, Diabetic Nephropathy, Renal Calculus, Retention, Urinary, Urinary Incontinence, UTI, Recurrent, Other (See Below) Other Genitourinary History: BPH with history of PSA elevation and secondary urinary retention and incontinence, chronic bilateral hydroceles Musculoskeletal History: Reports: Back Pain, Chronic, Neck Pain, Chronic, Osteoarthritis Neurological History: Reports: CVA, Other (See Below) Other Neuro History: 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 Psychiatric History: Reports: Anxiety, Depression, Emotional Problems Endocrine/Metabolic History: Reports: Diabetes, Type II Hematologic History: Reports: Anemia, Blood Transfusion(s), Other (See Below) Other Hematologic History: Possible previous blood transfusion secondary to lower GI bleed in March 2014 Oncologic (Cancer) History: Reports: Other (See Below) Other Oncologic History: Denies cancer history although note BPH with PSA elevation by history Dermatologic History: Reports: Chronic Cellulitis, Other (See Below) Other Dermatologic History: Chronic tinea in the perineal and testicle region, actinic keratoses - Infectious Disease History Infectious Disease History: Reports: Chicken Pox, Measles, Mumps - Past Surgical History HEENT Surgical History: Reports: Myringotomy w Tube(s), Oral Surgery, Other ( See Below) Other HEENT Surgeries/Procedures: Bilateral PE tubes as a child, [place] teeth extraction GI Surgical History: Reports: Colonoscopy, Other (See Below) Other GI Surgeries/Procedures: Last colonoscopy in April [address] [facility], EGD in April [address] 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 ED EXAM, GENERAL - Physical Exam Exam: See Below Exam Limited By: Other (Sitting in wheelchair) General Appearance: Alert, No Apparent Distress Eye Exam: Bilateral Eye: EOMI, PERRL Nose: No: Nasal Deformity, Nasal Swelling, Nasal Drainage Throat/Mouth: Normal Voice Head: Atraumatic, Normocephalic Neck: Supple, Non-Tender Respiratory/Chest: No Respiratory Distress, Lungs Clear, Chest Non-Tender Cardiovascular: Regular Rate, Rhythm, No Murmur GI/Abdominal: Soft, Non-Tender (Male) Exam: Deferred Rectal (Males) Exam: Deferred Back Exam: Other (Tender over left scapula) Extremities: Normal Capillary Refill, Limited Range of Motion (left shoulder), Other (Patient is tender with any palpation over every part of his shoulder, non -focal. This includes AC joint anteriorly/posteriorly, over the entire scapula , and lateral shoulder joint. He cannot perform ROM on his own. Passive ROM very limited, with patient becoming very angry with any attempt to try to examine the left shoulder. ). No: Increased Warmth, Mottled, Pallor, Redness Neurological: Alert Psychiatric: Other (irritable) Skin Exam: Warm, Dry, Intact Course - Vital Signs Last Recorded V/S: Last Vital Signs Temp 36.6 C 12/18/18 08:45 Pulse 65 12/18/18 08:45 Resp 17 12/18/18 08:45 BP 128/48 L 12/18/18 08:45 Pulse Ox 96 12/18/18 08:45 - Orders/Labs/Meds Orders: Active Orders 24 hr Category Date Time Status Shoulder Comp Lt [CR] Stat Exams 12/18/18 08:47 Ordered Shoulder wo Cont Lt [CT] Stat Exams 12/18/18 09:44 Ordered - Radiology Interpretation CT Results Date: 12/18/18 CT Results Time: 20:00 (negative for fracture) - Re-Assessments/Exams Free Text/Narrative Re-Assessment/Exam: 12/18/18 10:03 Radiology reviewed patient's xrays. Significant demineralization of bones limited study. Recommended CT of left shoulder to more completely rule out fracture given patient's level of complaints regarding the shoulder. CT ordered. Free Text/Narrative Re-Assessment/Exam: 12/18/18 11:25 Patient denied having any pain in the left shoulder when nursing staff informed him he could have a sling for comfort. CT of left shoulder negative for fracture. Plan at this time is to have patient return to the [facility] and follow up as needed on half-way rounds with primary provider. Additional follow up as needed depending on clinical course of pain complaint. Suspect soft tissue discomfort related to the fall, exacerbation of osteoarthritis-related pain. Departure - Departure Time of Disposition: 11:21 Disposition: DC/Tfer to SNF 03 Condition: Good Clinical Impression: Left shoulder pain Qualifiers: Chronicity: acute Qualified Code(s): M25.512 - Pain in left shoulder - Discharge Information *PRESCRIPTION DRUG MONITORING PROGRAM REVIEWED*: Not Applicable *COPY OF PRESCRIPTION DRUG MONITORING REPORT IN PATIENT CHING: Not Applicable Referrals: Sheets-Worley,Mariam, MD [Primary Care Provider] - Forms: ED Department Discharge Additional Instructions: Wear sling for comfort. Follow up with your primary on rounds at the [facility]. If needed, they can refer you to Ortho to have a shoulder injection if the pain continues/does not improve. - My Orders Last 24 Hours: My Active Orders 12/18/18 08:47 Shoulder Comp Lt [CR] Stat 12/18/18 09:44 Shoulder wo Cont Lt [CT] Stat - Assessment/Plan Last 24 Hours: My Active Orders 12/18/18 08:47 Shoulder Comp Lt [CR] Stat 12/18/18 09:44 Shoulder wo Cont Lt [CT] Stat
== END 2018-12-18 11:25 ==
LOC: LL.ED 08:40
DX: M25.512 Pain in left shoulder (principal); I25.10 Atherosclerotic heart disease of native coronary artery without angina pectoris; E78.00 Pure hypercholesterolemia, unspecified; I10 Essential (primary) hypertension; F41.9 Anxiety disorder, unspecified; F32.9 Major depressive disorder, single episode, unspecified; Z79.899 Other long term (current) drug therapy
CPT/HCPCS: 73030-LT; 73200-LT; 99283; 99285-25

== ENCOUNTER 2019-05-01 02:28 | Emergency (ER) | payer OTHER ==
[2019-05-01] MEDS ORDERED: Acetaminophen 500 MG Tab PO ONE (03:00)
--- NOTE | 2019-05-01 03:00 | EDM.PDOC ---
ED HPI GENERAL MEDICAL PROBLEM - General Chief Complaint: Headache Stated Complaint: headache Time Seen by Provider: 05/01/19 02:45 Source of Information: Reports: Patient, EMS, Assisted Records, Old Records ([facility] chart/EMR). 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 No apparent treatment in route. His headache is similar to previous episodes with patient apparently unable to take the Tylenol at the group home by his history. Per group home records the patient insisted on coming to the emergency room for treatment and had called 911 on his own. No other apparent change in his neurological status. No recent chest pain or other anginal complaints. No abdominal pain, etc.. No apparent recent fever, cough, dyspnea, etc. Onset: Today, Unknown/Unsure Duration: Constant Location: Reports: Head. Denies: Face, Neck, Chest, Abdomen, Back, Upper Extremity, Left, Upper Extremity, Right, Radiates to Quality: Reports: Same as Previous Episode, Throbbing Severity: Moderate Improves with: Reports: None Worsens with: Reports: None Context: Reports: Other (As above). Denies: Sick Contact, Trauma Associated Symptoms: Reports: Confusion (Stable chronic), Weakness (Stable left hemiparesis). 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 (see below) (None) Headache Pain Score (Numeric/FACES): 5 - Related Data Allergies Allergy/AdvReac Type Severity Reaction Status Date / Time No Known Allergies Allergy Verified 05/01/19 02:44 Home Meds: Home Meds Calcium Polycarbophil [Fibercon] 625 mg PO DAILY 04/02/14 [History] Carvedilol [Coreg] 12.5 mg PO BID@0800,1600 04/02/14 [History] Methenamine Hippurate 1 gm PO BID@0800,1600 04/02/14 [History] Tamsulosin [Flomax] 0.4 mg PO DAILY@159904/02/14 [History] atorvaSTATin [Lipitor] 20 mg PO 0800 04/02/14 [History] glipiZIDE [Glipizide ER] 5 mg PO BID@0800,1600 04/02/14 [History] hydroCHLOROthiazide [Hydrochlorothiazide] 12.5 mg PO DAILY 04/02/14 [History] Lisinopril 20 mg PO DAILY 09/30/14 [History] Pantoprazole [ProTONIX] 40 mg PO DAILY 09/30/14 [History] Aspirin [Halfprin] 81 mg PO DAILY 05/29/17 [History] Hydrocortisone [Hydrocortisone 1% Crm] 1 dose TOP BID PRN 05/29/17 [History] Lisinopril [Prinivil] 10 mg PO DAILY@1600 05/29/17 [History] Loperamide HCl [Imodium A-D] 2 mg PO ASDIRECTED PRN 05/29/17 [History] Mag Hydrox/Al Hydrox/Simeth [Antacid M Liquid] 15 - 20 ml PO QID PRN 05/29/17 [ History] Sennosides/Docusate Sodium [Senna-S Tablet] 1 each PO DAILY 05/29/17 [History] Acetaminophen [Tylenol] 650 mg PO Q4HR PRN 12/18/18 [History] Bisacodyl [Dulcolax] 5 - 10 mg PO DAILY PRN 12/18/18 [History] Bisacodyl [Dulcolax] 10 mg RC DAILY PRN 12/18/18 [History] Cholecalciferol (Vitamin D3) [Vitamin D3] 2,000 unit PO DAILY 12/18/18 [History] Dextran 70/Hypromellose [Artificial Tears Eye Drops] 2 drop OP Q4H 12/18/18 [ History] Escitalopram [Lexapro] 10 mg PO DAILY 12/18/18 [History] Finasteride 5 mg PO DAILY 12/18/18 [History] Menthol [[place] Sugar Free] 1 emma PO Q2H PRN 12/18/18 [History] Past Medical History HEENT History: Reports: Hard of Hearing, Impaired Vision, Other (See Below). Denies: Allergic Rhinitis Other HEENT History: Wears reading glasses, bilateral presbycusis with no current therapy. Poor dentition. Cardiovascular History: Reports: CAD, Cardiomyopathy, High Cholesterol, Hypertension. Denies: Afib, Arrhythmia Respiratory History: Reports: Bronchitis, Recurrent, COPD, Other (See Below) Other Respiratory History: COPD by chest x-ray. Gastrointestinal History: Reports: Chronic Constipation, Colon Polyp, Diverticulosis, Gastritis, GERD, GI Bleed, PUD, Other (See Below) Other Gastrointestinal History: Lower GI bleed secondary to diverticulitis on . Umbilical hernia. Genitourinary History: Reports: BPH, Chronic Renal Insuffiency, Diabetic Nephropathy, Renal Calculus, Retention, Urinary, Urinary Incontinence, UTI, Recurrent, Other (See Below) Other Genitourinary History: BPH with history of PSA elevation and secondary urinary retention and incontinence, chronic bilateral hydroceles Musculoskeletal History: Reports: Arthritis, Back Pain, Chronic, Gout, Neck Pain , Chronic, Osteoarthritis, Osteoporosis, Other (See Below) Other Musculoskeletal History: Left rotator cuff tearchronic. 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 Vascular dementia. Psychiatric History: Reports: Anxiety, Depression, Emotional Problems, Other ( See Below) Other Psychiatric History: Mental deficits as above. Endocrine/Metabolic History: Reports: Diabetes, Type II, Obesity/BMI 30+, Osteopenia, Osteoporosis, Vitamin D Deficiency, Other (See Below). Denies: IDDM Other Endocrine/Metabolic History: Hypoalbuminemia. Hematologic History: Reports: Anemia, Blood Transfusion(s), Other (See Below) Other Hematologic History: Possible previous blood transfusion secondary to lower GI bleed in March 2014 Immunologic History: Reports: None. Denies: AIDS, SLE Oncologic (Cancer) History: Reports: Other (See Below) Other Oncologic History: Denies cancer history although note BPH with PSA elevation by history Dermatologic History: Reports: Chronic Cellulitis, Other (See Below) Other Dermatologic History: Chronic tinea in the perineal and testicle region, actinic keratoses - Infectious Disease History Infectious Disease History: Reports: Chicken Pox, Measles, MRSA, Mumps. Denies : C-Difficile, VRE - Past Surgical History HEENT Surgical History: Reports: Myringotomy w Tube(s), Oral Surgery, Other ( See Below) Other HEENT Surgeries/Procedures: Bilateral PE tubes as a child, [place] teeth extraction GI Surgical History: Reports: Colonoscopy, Polypectomy, Other (See Below) Other GI Surgeries/Procedures: Last colonoscopy in April 2014 at the [facility], EGD in April 2014 at the [facility] Male Surgical History: Reports: TURP-Transurethral Resection of Prostate. Denies: Circumcision Other Surgical History Comment: Unable to obtain complete history secondary to patient's chronic mental status. - Past Imaging History Past Imaging History: Reports: CAT Scan (CT of the left shoulder on 12/18/18.) - History Comment History Comment: Unable to obtain complete history secondary to patient's mental status and uncooperativeness Social & Family History - Family History Family Medical History: Unobtainable - Tobacco Use Smoking Status *Q: Former Smoker Tobacco Use Within Last Twelve Months: No Years of Tobacco use: 20 Packs/Tins Daily Comment: Stopped smoking in 2012 Used Tobacco, but Quit: Yes Smoking Cessation Information Provided To Patient: No Second Hand Smoke Exposure: No Second Hand Smoke Education Provided: No - Alcohol Use Alcohol Use History: Yes Number of Drinks Per Day: 0 Number of Drinks Per Day Comment: Last alcohol in about 1994. Alcohol Use in Last Twelve Months: No - Recreational Drug Use Recreational Drug Use: No Drug Use in Last 12 Months: No - Living Situation & Occupation Living situation: Reports: (2 children), Extended Care Facility (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 - Physical Exam Exam: See Below Exam Limited By: Altered Mental Status (Patient confusionstable by history) General Appearance: Alert, WD/WN, No Apparent Distress Eye Exam: Bilateral Eye: EOMI, Normal Fundi (No nystagmus), PERRL Ears: Normal External Exam, Normal Canal, Hearing Grossly Normal, Normal TMs Nose: Normal Inspection, Normal Mucosa, No Blood Throat/Mouth: Normal Lips, Normal Gums, Normal Oropharynx, Normal Voice, No Airway Compromise. No: Normal Teeth (Dentition in poor repair including multiple broken caries into the gumline and missing teeth with no gingiva swelling, drainage, etc.), Dysphagia, Evidence of Tongue Biting, Perioral Cyanosis Head Exam: Atraumatic, Normocephalic. No: Facial Tenderness, Sinus Tenderness Neck: Supple, Non-Tender, Full Range of Motion, Carotid Bruit (Mild bilateral carotid bruits). No: Limited Range of Motion, Lymphadenopathy (L), Thyromegaly Respiratory/Chest: No Respiratory Distress, Lungs Clear, Normal Breath Sounds, No Accessory Muscle Use, Chest Non-Tender. No: Pleural Rub, Retractions Cardiovascular: Normal Peripheral Pulses, Regular Rate, Rhythm, No Edema, No Gallop, No JVD, No Murmur, No Rub. No: Gallop/S3, Gallop/S4, Friction Rub GI/Abdominal: Normal Bowel Sounds, Soft, Non-Tender, No Organomegaly, No Distention, No Abnormal Bruit, No Mass, Hernia (2 cm umbilical hernia), Other ( Obese). No: Guarding (Male) Exam: Deferred Rectal (Males) Exam: Deferred Neuro Exam (Abbreviated): Alert, Normal Reflexes (Negative Babinski's), Confused (Stable by history moderate confusion), Other (Stable mild to moderate left hemiparesis with borderline left tongue deviation) Back Exam: Normal Inspection, Full Range of Motion. No: CVA Tenderness (L), CVA Tenderness (R), Muscle Spasm Extremities: Normal Inspection, Normal Range of Motion, Non-Tender, No Pedal Edema, Normal Capillary Refill. No: Emely's Sign Psychiatric: Normal Affect, Normal Mood Skin Exam: Warm, Dry, Intact, Normal Color, No Rash, Ecchymosis (Mild multiple old left forearm with no evidence of recent fall, etc.), Wound/Incision. No: Diaphoretic Course - Vital Signs Last Recorded V/S: Last Vital Signs Temp 36.8 C 05/01/19 02:37 Pulse 61 05/01/19 02:47 Resp 16 05/01/19 02:37 BP 129/68 05/01/19 02:47 Pulse Ox 97 05/01/19 02:47 Vital Signs - 24 hr 05/01/19 05/01/19 05/01/19 02:37 02:47 03:01 Temperature [ 36.8 C Temporal] Pulse, 66 61 61 Peripheral [ Right Pulse Oximetry] Respiratory 16 Rate Blood Pressure 160/67 H 129/68 137/68 [Right Upper Arm] O2 Sat by Pulse 100 97 98 Oximetry 05/01/19 05/01/19 03:16 03:31 Temperature [ Temporal] Pulse, 66 63 Peripheral [ Right Pulse Oximetry] Respiratory Rate Blood Pressure 128/71 128/71 [Right Upper Arm] O2 Sat by Pulse 96 97 Oximetry - Orders/Labs/Meds Orders: Active Orders 24 hr Category Date Time Status Obtain Past Medical Record [OM.PC] Routine Oth 05/01/19 03:00 Active Labs: None Meds: Medications Discontinued Medications Generic Name Dose Route Start Last Admin Trade Name Freq PRN Reason Stop Dose Admin Acetaminophen 1,000 mg 05/01/19 03:00 Tylenol Extra Strength PO 05/01/19 03:01 ONETIME ONE - Radiology Interpretation Free Text/Narrative:: None Departure - Departure Time of Disposition: 03:40 Disposition: DC/Tfer to Slitter Sc[facility] 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 [facility] Condition: Good Clinical Impression: HTN, Benign hypertension, Caries, Peptic reflux disease, Umbilical hernia COPD (chronic obstructive pulmonary disease) Qualifiers: COPD type: emphysema Emphysema type: panlobular Qualified Code(s): J43.1 - Panlobular emphysema Headache Qualifiers: Headache type: primary cough headache Qualified Code(s): G44.83 - Primary cough headache - Discharge Information *PRESCRIPTION DRUG MONITORING PROGRAM REVIEWED*: Not Applicable *COPY OF PRESCRIPTION DRUG MONITORING REPORT IN PATIENT CHING: Not Applicable Referrals: Sheets-Mariam Worley MD [Primary Care Provider] - Forms: ED Department Discharge Additional Instructions: 1. Follow up with your regular provider in 10-14 days as needed, if symptoms persist. Bring these discharge instructions with you to that visit.. 2. Always talk to the nursing staff prior to calling the ambulance on your own so that they can help you with your immediate problems 3. Next Tylenol dose in 4 hours as needed as per previous group home standing orders with continuation of all previous group home orders 4. [facility] staff to contact your regular provider concerning referral to a dentist for repair of multiple caries - Problem List & Annotations (1) Headache SNOMED Code(s): 31486249 Code(s): R51 - HEADACHE Status: Acute Priority: High Onset Date: ~05/01 Annotation/Comment:: No change in his neurological status or evidence of recurrence of his previous CVA. Headache quickly relieved with one dose of Tylenol as above. Qualifiers: Headache type: primary cough headache Qualified Code(s): G44.83 - Primary cough headache (2) Caries SNOMED Code(s): 03542072 Code(s): K02.9 - DENTAL CARIES, UNSPECIFIED Status: Chronic Priority: High Annotation/Comment:: [facility] advised to have patient follow-up with his dentist MARCIE per instructions from his regular provider. (3) HTN, Benign hypertension SNOMED Code(s): 33627378 Code(s): I10 - ESSENTIAL (PRIMARY) HYPERTENSION Status: Acute Priority: Medium Annotation/Comment:: Blood pressures under reasonably good control in the emergency room, although initially elevated. Observe for now with no treatment required in the emergency room. (4) Peptic reflux disease SNOMED Code(s): 034211545 Code(s): K21.9 - GASTRO-ESOPHAGEAL REFLUX DISEASE WITHOUT ESOPHAGITIS Status: Acute Priority: Medium Annotation/Comment:: Stable by history with previous history of lower GI bleed secondary to diverticulitis. No abdominal complaints at this time despite his umbilical hernia. (5) Umbilical hernia SNOMED Code(s): 201498836 Code(s): K42.9 - UMBILICAL HERNIA WITHOUT OBSTRUCTION OR GANGRENE Status: Chronic Priority: Medium Annotation/Comment:: As above Qualifiers: Obstruction and gangrene presence: without obstruction or gangrene Qualified Code(s): K42.9 - Umbilical hernia without obstruction or gangrene (6) COPD (chronic obstructive pulmonary disease) SNOMED Code(s): 60896671 Code(s): J44.9 - CHRONIC OBSTRUCTIVE PULMONARY DISEASE, UNSPECIFIED Status : Chronic Priority: Medium Annotation/Comment:: COPD by chest x-ray with no recent bronchitic-type symptoms, etc. Qualifiers: COPD type: emphysema Emphysema type: panlobular Qualified Code(s): J43.1 - Panlobular emphysema - Problem List Review Problem List Initiated/Reviewed/Updated: Yes - My Orders Last 24 Hours: My Active Orders 05/01/19 03:00 Obtain Past Medical Record [OM.PC] Routine - Assessment/Plan Last 24 Hours: My Active Orders 05/01/19 03:00 Obtain Past Medical Record [OM.PC] Routine Assessment:: As above Plan: As above. Extensive precautions were given to the patient and group home staff , who is in agreement with the treatment plan. ER records faxed to [facility] in [place]. See Patient Instructions for further treatment and plan.
[2019-05-01 03:19] VITALS: BP 128/71
== END 2019-05-01 03:40 ==
LOC: LL.ED 02:28
DX: G44.83 Primary cough headache (principal); J43.1 Panlobular emphysema; K42.9 Umbilical hernia without obstruction or gangrene; K21.9 Gastro-esophageal reflux disease without esophagitis; K02.9 Dental caries, unspecified; I11.9 Hypertensive heart disease without heart failure; I43 Cardiomyopathy in diseases classified elsewhere; I13.10 Hypertensive heart and chronic kidney disease without heart failure, with stage 1 through stage 4 chronic kidney disease, or unspecified chronic kidney disease; E11.22 Type 2 diabetes mellitus with diabetic chronic kidney disease; N18.9 Chronic kidney disease, unspecified; E11.21 Type 2 diabetes mellitus with diabetic nephropathy; I25.10 Atherosclerotic heart disease of native coronary artery without angina pectoris; E78.00 Pure hypercholesterolemia, unspecified; M19.90 Unspecified osteoarthritis, unspecified site; M10.9 Gout, unspecified; F41.9 Anxiety disorder, unspecified; F32.9 Major depressive disorder, single episode, unspecified; F01.50 Vascular dementia, unspecified severity, without behavioral disturbance, psychotic disturbance, mood disturbance, and anxiety; N40.1 Benign prostatic hyperplasia with lower urinary tract symptoms; R33.8 Other retention of urine; E66.9 Obesity, unspecified; Z86.2 Personal history of diseases of the blood and blood-forming organs and certain disorders involving the immune mechanism; Z87.891 Personal history of nicotine dependence; Z79.82 Long term (current) use of aspirin; Z79.899 Other long term (current) drug therapy
CPT/HCPCS: 99284; A9270-GY

== ENCOUNTER 2021-02-08 15:15 | Emergency (ER) | payer OTHER ==
[2021-02-08] MEDS ORDERED: Lactated Ringers 1,000 ML IV ONE (15:23)
[2021-02-08] MEDS ORDERED: Pantoprazole 40 MG Vial IVPUSH ONE (15:44)
[2021-02-08] MEDS ORDERED: Famotidine 20 MG/2 ML SDV IVPUSH ONE (15:44)
--- NOTE | 2021-02-08 15:44 | EDM.PDOC ---
ED HPI GENERAL MEDICAL PROBLEM - General Chief Complaint: General Stated Complaint: abnormal labs Time Seen by Provider: 02/08/21 15:15 Source of Information: Reports: Patient, EMS, Retirement Records, Old Records ([facility] chart/EMR). Denies: EMS Notes Reviewed (Not available at time of dictation) History Limitations: Reports: Altered Mental Status - History of Present Illness INITIAL COMMENTS - FREE TEXT/NARRATIVE: Patient was brought to the emergency room via ambulance with superintendent of generation accompaniment with no treatment in route. Only very limited history was given to the superintendent of generation and to our nurses prior to patient's transfer. The patient apparently has been having some problems some nonspecific right lower quadrant abdominal pain, loose stools, and mild anorexia for an unknown amount of time. He was evaluated by Dr. Khan earlier this morning and blood work ordered at that time. After receiving these test results the patient was referred to emergency room for further evaluation. No apparent history of melena, nausea/emesis, fever, cough, dyspnea, chest pain, anginal complaints, change in neurological status, etc., however extremely limited history available. Possible nonspecific abdominal pain as above, although the patient essentially complains of pain everywhere and is unable to rate his discomfort. Onset: Today, Unknown/Unsure Duration: Constant, Getting Worse Location: Reports: Abdomen, Generalized Quality: Reports: Same as Previous Episode Severity: Moderate Improves with: Reports: None Worsens with: Reports: Movement Context: Reports: Other (As above). Denies: Sick Contact, Trauma Associated Symptoms: Reports: Confusion (Stable), Weakness (Stable chronic). Denies: Chest Pain, Cough, Diaphoresis, Fever/Chills, Headaches, Loss of Appetite, Malaise, Nausea/Vomiting, Rash, Seizure, Shortness of Breath, Syncope Treatments [employer]CR[employer]OMPUTER SUPPORT SPECIALIST: Reports: Other (see below) (None) - Related Data Allergies Allergy/AdvReac Type Severity Reaction Status Date / Time No Known Allergies Allergy Verified 02/08/21 16:16 Home Meds: Home Meds Methenamine Hippurate 1 gm PO BID@0800,1600 04/02/14 [History] Tamsulosin [Flomax] 0.4 mg PO DAILY@1600 04/02/14 [History] atorvaSTATin [Lipitor] 20 mg PO 0800 04/02/14 [History] carvediloL [Coreg] 6.25 mg PO BID@0800,1600 04/02/14 [History] Lisinopril 5 mg PO DAILY 09/30/14 [History] Pantoprazole [ProTONIX] 40 mg PO DAILY 09/30/14 [History] Aspirin [Halfprin] 81 mg PO DAILY 05/29/17 [History] Hydrocortisone [Hydrocortisone 1% Crm] 1 dose TOP BID PRN 05/29/17 [History] Loperamide HCl [Imodium A-D] 2 mg PO ASDIRECTED PRN 05/29/17 [History] Mag Hydrox/Aluminum Hyd/Simeth [Antacid M Liquid] 15 - 20 ml PO QID PRN 05/29/17 [History] Sennosides/Docusate Sodium [Senna-S Tablet] 1 each PO DAILY 05/29/17 [History] Acetaminophen [Tylenol] 650 mg PO Q4HR PRN 12/18/18 [History] Cholecalciferol (Vitamin D3) [Vitamin D3] 2,000 unit PO DAILY 12/18/18 [History] Dextran 70/Hypromellose [Artificial Tears Eye Drops] 2 drop OP Q4H 12/18/18 [History] Escitalopram [Lexapro] 20 mg PO DAILY 12/18/18 [History] Finasteride 5 mg PO DAILY 12/18/18 [History] Menthol [[place] Sugar Free] 1 emma PO Q2H PRN 12/18/18 [History] bisacodyL [Dulcolax] 5 - 10 mg PO DAILY PRN 12/18/18 [History] Gabapentin [Neurontin] 300 mg PO DAILY 02/08/21 [History] calcium polycarbophiL [Fibercon] 650 mg PO DAILY 02/08/21 [History] Past Medical History HEENT History: Reports: Hard of Hearing, Impaired Vision, Otitis Media, Other (See Below). Denies: Allergic Rhinitis Other HEENT History: Wears reading glasses, bilateral presbycusis with no current therapy. Poor dentition/caries. Dry eye syndrome. Cardiovascular History: Reports: CAD, Cardiomyopathy, Heart Failure, High Cholesterol, Hypertension, Other (See Below). Denies: Afib, Arrhythmia Other Cardiovascular History: Hypotension. Respiratory History: Reports: Bronchitis, Recurrent, COPD, Other (See Below) Other Respiratory History: COPD by chest x-ray. Gastrointestinal History: Reports: Chronic Constipation, Colon Polyp, Diverticulosis, Fecal Incontinence, Gastritis, GERD, GI Bleed, PUD, Other (See Below) Other Gastrointestinal History: Lower GI bleed secondary to diverticulitis on 04/02/14. Umbilical hernia. Genitourinary History: Reports: BPH, Chronic Renal Insuffiency, Diabetic Nephropathy, Renal Calculus, Retention, Urinary, Urinary Incontinence, UTI, Recurrent, Other (See Below) Other Genitourinary History: BPH with history of PSA elevation and secondary urinary retention and incontinence, chronic bilateral hydroceles. Renal cysts. Musculoskeletal History: Reports: Arthritis, Back Pain, Chronic, Gout, Neck Pain, Chronic, Osteoarthritis, Osteoporosis, Other (See Below) Other Musculoskeletal History: Left rotator cuff tearchronic. 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 Vascular dementia. Recurrent falls. Psychiatric History: Reports: Anxiety, Dementia, Depression, Emotional Problems, Psychosis, Other (See Below) Other Psychiatric History: Mental deficits as above. Endocrine/Metabolic History: Reports: Diabetes, Type II, Obesity/BMI 30+, Osteopenia, Osteoporosis, Vitamin D Deficiency, Other (See Below). Denies: IDDM Other Endocrine/Metabolic History: Hypoalbuminemia. Hematologic History: Reports: Anemia, Blood Transfusion(s), Other (See Below) Other Hematologic History: Possible previous blood transfusion secondary to lower GI bleed in March 2014 Immunologic History: Reports: None. Denies: AIDS, SLE Oncologic (Cancer) History: Reports: Other (See Below) Other Oncologic History: Denies cancer history although note BPH with PSA elevation by history Dermatologic History: Reports: Chronic Cellulitis, Other (See Below) Other Dermatologic History: Chronic tinea in the perineal and testicle region, actinic keratoses - Infectious Disease History Infectious Disease History: Reports: Chicken Pox, Measles, MRSA, Mumps. Denies: C-Difficile, Novel Coronavirus (Completely immunized with last Moderna injection on 11/16/2020.), VRE - Past Surgical History HEENT Surgical History: Reports: Myringotomy w Tube(s), Oral Surgery, Other (See Below) Other HEENT Surgeries/Procedures: Bilateral PE tubes as a child, D Lo teeth extraction GI Surgical History: Reports: Colonoscopy, Polypectomy, Other (See Below) Other GI Surgeries/Procedures: Last colonoscopy in April 2014 at the [facility] [place], EGD in April [address] [facility] Male Surgical History: Reports: TURP-Transurethral Resection of Prostate. Denies: Circumcision Other Surgical History Comment: Unable to obtain complete history secondary to patient's chronic mental status. - Past Imaging History Past Imaging History: Reports: CAT Scan (CT of the left shoulder on 12/18/18.) - History Comment History Comment: Unable to obtain complete history secondary to patient's mental status and uncooperativeness Social & Family History - Family History Family Medical History: Unobtainable - Living Situation & Occupation Living situation: Reports: (2 children), Extended Care Facility (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 No: Normal Teeth (Somewhat poor dentition), Dysphagia, Inflammation, Perioral Cyanosis Head: Atraumatic, Normocephalic. No: Facial Swelling, Facial Tenderness, Sinus Tenderness Neck: Normal Inspection, Supple, Non-Tender, Full Range of Motion, Carotid Bruit (Mild bilateral). No: Lymphadenopathy (L), Lymphadenopathy (R), Thyromegaly Respiratory/Chest: No Respiratory Distress, Lungs Clear, Normal Breath Sounds, No Accessory Muscle Use, Chest Non-Tender. No: Pleural Rub, Retractions Cardiovascular: Normal Peripheral Pulses, Regular Rate, Rhythm, No Edema, No Gallop, No JVD, No Murmur, No Rub. No: Gallop/S3, Gallop/S4, Friction Rub Peripheral Pulses: 2+: Radial (L), Radial (R), Dorsalis Pedis (L), Dorsalis Pedis (R) GI/Abdominal: Normal Bowel Sounds, Soft, No Organomegaly, No Distention, No Abnormal Bruit, No Mass, Pelvis Stable, Tender (Possible mild right lower quadrant), Hernia (2 cm nonincarcerated umbilical hernia), Other (Obese). No: Guarding, Rigid, Rebound (Male) Exam: Deferred Rectal (Males) Exam: Deferred Back Exam: Normal Inspection, Full Range of Motion. No: CVA Tenderness (L), CVA Tenderness (R) Extremities: Normal Inspection, Normal Range of Motion, Non-Tender, No Pedal Edema, Normal Capillary Refill. No: Emely's Sign Neurological: Alert, Normal Reflexes (Negative Babinski's), Confused (Stable moderate organic brain syndrome), Other (Stable left hemiparesis. Negative Babinski's. Patient unable to perform complete neurological exam.) Skin Exam: Normal Color, No Rash, Wound/Incision (Stable decubiti by history). No: Diaphoretic Lymphatic: No Adenopathy Course - Vital Signs Last Recorded V/S: Last Vital Signs Temp 36.2 C 02/08/21 20:05 Pulse 69 02/08/21 20:05 Resp 16 02/08/21 20:05 BP 91/69 02/08/21 20:05 Pulse Ox 96 02/08/21 20:05 Vital Signs - 24 hr 02/08/21 02/08/21 02/08/21 15:19 17:01 19:07 Temperature [ 37.1 C 36.8 C Temporal] Pulse, 82 80 90 Peripheral [ Pulse Oximetry] Respiratory 16 16 20 Rate Blood Pressure 93/49 L 116/68 116/103 H [Left Upper Arm ] O2 Sat by Pulse 93 L 97 95 Oximetry 02/08/21 20:05 Temperature [ 36.2 C Temporal] Pulse, 69 Peripheral [ Pulse Oximetry] Respiratory 16 Rate Blood Pressure 91/69 [Left Upper Arm ] O2 Sat by Pulse 96 Oximetry - Orders/Labs/Meds Orders: Active Orders 24 hr Category Date Time Status Colby Catheter Insertion [Insert Urinary Catheter] [OM. Care 02/08/21 18:30 Ordered PC] Q24H Peripheral IV Care [RC] . DIRECTED Care 02/08/21 15:23 Active Urinary Catheter Assessment [RC] ASDIRECTED Care 02/08/21 18:27 Active Abdomen Pelvis wo Cont [CT] Stat Exams 02/08/21 17:19 Taken Abdomen Series w Chest 1V [CR] Routine Exams 02/08/21 15:44 Taken CULTURE URINE [RM] Routine Lab 02/08/21 18:55 Received Lactated Ringers [Ringers, Lactated] 1,000 ml Med 02/08/21 17:30 Active IV ASDIRECTED Sodium Chloride 0.9% [Saline Flush] Med 02/08/21 15:23 Active 10 ml FLUSH ASDIRECTED PRN Obtain Past Medical Record [OM.PC] Routine Oth 02/08/21 15:21 Active Peripheral IV Insertion Adult [OM.PC] Routine Oth 02/08/21 15:22 Ordered Medication Orders Lactated Ringer's (Ringers, Lactated) 1,000 mls @ 100 mls/hr IV ASDIRECTED FLASH Last Admin: 02/08/21 19:02 Dose: 100 mls/hr Documented by: JOSE Sodium Chloride (Sodium Chloride 0.9% 10 Ml Syringe) 10 ml FLUSH ASDIRECTED PRN PRN Reason: Keep Vein Open Last Admin: 02/08/21 15:47 Dose: 10 ml Documented by: Admin: 02/08/21 15:46 Dose: 10 ml Documented by: DEVIN Labs: Laboratory Tests 02/08/21 02/08/21 02/08/21 Range/Units 10:36 10:36 15:30 Lactic Acid (0.4-2.0) mmol/L Phosphorus 4.9 H (2.6-4.7) mg/dL Total Bilirubin 0.7 (0.2-1.0) mg/dL Direct Bilirubin 0.2 (0.0-0.2) mg/dL Indirect Bilirubin 0.5 AST 29 (15-37) U/L ALT 19 (12-78) U/L Alkaline Phosphatase 86 (46-116) IU/L Total Protein 7.4 (6.4-8.2) g/dL Albumin 3.1 L (3.4-5.0) g/dL Globulin 4.3 Albumin/Globulin Ratio 0.72 Amylase 33 (25-115) U/L Lipase 133 (73-393) U/L Specimen Type Urine Color Urine Appearance Urine pH (5.0-9.0) Ur Specific [place] (1.005-1.030) Urine Protein (NEGATIVE) mg/dL Urine Glucose (UA) (NEGATIVE) mg/dL Urine Ketones (NEGATIVE) mg/dL Urine Occult Blood (NEGATIVE) Urine Nitrite (NEGATIVE) Urine Bilirubin (NEGATIVE) Urine Urobilinogen (0.2-1.0) E.U./dL Ur Leukocyte Esterase (NEGATIVE) Urine RBC /HPF Urine WBC /HPF Ur Epithelial Cells /LPF Urine Bacteria (NONE TO FEW) /HPF SARS-CoV-2 RNA (GISSELL) Negative (NEGATIVE) 02/08/21 02/08/21 Range/Units 15:35 18:55 Lactic Acid 1.6 (0.4-2.0) mmol/L Phosphorus (2.6-4.7) mg/dL Total Bilirubin (0.2-1.0) mg/dL Direct Bilirubin (0.0-0.2) mg/dL Indirect Bilirubin AST (15-37) U/L ALT (12-78) U/L Alkaline Phosphatase (46-116) IU/L Total Protein (6.4-8.2) g/dL Albumin (3.4-5.0) g/dL Globulin Albumin/Globulin Ratio Amylase (25-115) U/L Lipase (73-393) U/L Specimen Type Urincath Urine Color Yellow Urine Appearance Slightly cloudy Urine pH 7.0 (5.0-9.0) Ur Specific [place] 1.020 (1.005-1.030) Urine Protein 100 H (NEGATIVE) mg/dL Urine Glucose (UA) 100 H (NEGATIVE) mg/dL Urine Ketones Negative (NEGATIVE) mg/dL Urine Occult Blood Large H (NEGATIVE) Urine Nitrite Negative (NEGATIVE) Urine Bilirubin Negative (NEGATIVE) Urine Urobilinogen 0.2 (0.2-1.0) E.U./dL Ur Leukocyte Esterase Trace H (NEGATIVE) Urine RBC 40-50 H /HPF Urine WBC 20-30 H /HPF Ur Epithelial Cells Few /LPF Urine Bacteria Few (NONE TO FEW) /HPF SARS-CoV-2 RNA (GISSELL) (NEGATIVE) Urine specimen set up for culture and sensitivity with specimen collected after IV Rocephin given CBC and basic metabolic panel ordered by regular provider prior to ER evaluation showed WBCs of 12.7 with 83.8% neutrophils with normal hemoglobin of 13.5, MCV 87.0, and platelets 181. Sodium 146, potassium 4.5, random glucose of 187, BUN 57 with creatinine of 3.36 in comparison to 1.59 on 10/20/2020. Calcium 9.5. CRP elevated at 4.9. Meds: Medications Generic Name Dose Route Start Last Admin Trade Name Freq PRN Reason Stop Dose Admin Lactated Ringer's 1,000 mls @ 100 mls/hr 02/08/21 17:30 02/08/21 19:02 Ringers, Lactated IV 100 mls/hr ASDIRECTED FLASH Administration Sodium Chloride 10 ml 02/08/21 15:23 02/08/21 15:47 Sodium Chloride 0.9% 10 Ml Syringe FLUSH 10 ml ASDIRECTED PRN Administration Keep Vein Open Discontinued Medications Generic Name Dose Route Start Last Admin Trade Name Freq PRN Reason Stop Dose Admin Ceftriaxone Sodium 2 gm 02/08/21 17:18 02/08/21 19:01 Ceftriaxone 2 Gm Vial IVPUSH 02/08/21 17:19 2 gm ONETIME ONE Administration Famotidine 40 mg 02/08/21 15:44 02/08/21 15:48 Famotidine 20 Mg/2 Ml Sdv IVPUSH 02/08/21 15:45 40 mg ONETIME ONE Administration Lactated Ringer's 1,000 mls @ 999 mls/hr 02/08/21 15:23 02/08/21 15:45 Ringers, Lactated IV 02/08/21 16:23 999 mls/hr .BOLUS ONE Administration Pantoprazole Sodium 40 mg 02/08/21 15:44 02/08/21 15:49 Pantoprazole 40 Mg Vial IVPUSH 02/08/21 15:45 40 mg ONETIME ONE Administration - Radiology Interpretation Free Text/Narrative:: Telephone consultation at 6:20 PM with the radiology department at [facility]. Preliminary verbal report of noncontrast CT scan of the abdomen pelvis was positive for severe BPH with urinary retention with more than 1000 mL of urine present with secondary moderate to severe bilateral hydronephrosis with no urolithiasis. Incidental bilateral renal cysts, although a 1.3 cm left renal cyst should be followed up with a renal ultrasound. Bilateral incidental lower lobe probable artifacts, however cannot rule out possible bilateral PEs? Note no clinical evidence of PE. Findings likely artifactual in nature secondary to motion artifact and uncooperative patient. CT Results Date: 02/08/21 CT Results Time: 18:00 Departure - Departure Time of Disposition: 20:13 Disposition: DC/Tfer to Acute Hospital 02 Condition: Fair Clinical Impression: Abdominal pain, HTN, Benign hypertension, Comfort measures only status, Peptic reflux disease, Heart disease, Renal insufficiency, Renal cyst COPD (chronic obstructive pulmonary disease) Qualifiers: COPD type: emphysema Emphysema type: panlobular Qualified Code(s): J43.1 - Panlobular emphysema Vascular dementia Qualifiers: Dementia behavioral disturbance: with behavioral disturbance Qualified Code(s): F01.51 - Vascular dementia with behavioral disturbance BPH (benign prostatic hyperplasia) Qualifiers: Lower urinary tract symptom presence: symptoms present Lower urinary tract symptom detail: urinary retention Qualified Code(s): N40.1 - Benign prostatic hyperplasia with lower urinary tract symptoms Hydronephrosis Qualifiers: Hydronephrosis type: other Qualified Code(s): N13.39 - Other hydronephrosis - Discharge Information *PRESCRIPTION DRUG MONITORING PROGRAM REVIEWED*: Not Applicable *COPY OF PRESCRIPTION DRUG MONITORING REPORT IN PATIENT CHING: Not Applicable Referrals: Sara Mayes PA [Primary Care Provider] - Forms: ED Department Discharge, Interfacility Transfer [facility] Sepsis Event Note (ED) - Evaluation Sepsis Screening Result: No Definite Risk - Focused Exam Vital Signs: Vital Signs Temp Pulse Resp BP Pulse Ox 02/08/21 20:05 36.2 C 69 16 91/69 96 02/08/21 19:07 36.8 C 90 20 116/103 H 95 02/08/21 17:01 80 16 116/68 97 02/08/21 15:19 37.1 C 82 16 93/49 L 93 L - Problem List & Annotations (1) Renal insufficiency SNOMED Code(s): 242051938, 909506701 Code(s): N28.9 - DISORDER OF KIDNEY AND URETER, UNSPECIFIED Status: Chronic Priority: High Current Visit: Yes Annotation/Comment:: Telephone consultation at 5:[address] Munoz, hospitalist at the [facility] in [place], who is requesting that CT scan of the abdomen and pelvis to be conducted prior to transfer of this patient to their facility. Note that the patient is somewhat uncooperative with CT scan results as above. Subsequent telephone consultation at 6:32 PM with the [facility]. Subsequent telephone consultation at 6:[address] Munoz, who does accept the patient for direct admission and further treatment and evaluation, with no further treatment recommendations given. Progressive renal insufficiency/obstructive nephropathy based on today's blood work with additional hyperphosphatemia likely secondary to severe BPH with urinary retention and bilateral hydronephrosis. Lactated Ringer's IV given in the ER with additional continuation of IV LR fluids in route. Colby catheter placed with UA and culture and sensitivity collected prior to patient's transfer. Note that Rocephin added been previously given prior to collection of this urine specimen, however. Ambulance transfer with superintendent of generation accompaniment. Clinical exam and vital signs were stable at time of patient transfer. Patient's daughter is agreement with this treatment plan. (2) Abdominal pain SNOMED Code(s): 75915966 Code(s): R10.9 - UNSPECIFIED ABDOMINAL PAIN Status: Acute Priority: High Current Visit: Yes Onset Date: ~02/08/21 Annotation/Comment:: Chronic problem. Abdominal complaints today possibly secondary to his bilateral hydronephrosis as above. Patient is an extremely poor historian. Note mild leukocytosis with normal lactic acid level and no evidence of sepsis. No significant fever at this time. 2 g IV Rocephin given in the emergency room. Note requested CT scan of the abdomen pelvis without contrast as above secondary to patient's acute renal failure. High-dose IV Pepcid and IV Protonix given his GI prophylaxis. (3) HTN, Benign hypertension SNOMED Code(s): 23785884 Code(s): I10 - ESSENTIAL (PRIMARY) HYPERTENSION Status: Acute Priority: Medium Current Visit: Yes Annotation/Comment:: History of both hypertension and hypotension with somewhat low blood pressures in the emergency room. 1 L IV bolus of lactated Ringer's given with continuation of IV fluids in route as above. (4) Heart disease SNOMED Code(s): 19519899 Code(s): I51.9 - HEART DISEASE, UNSPECIFIED Status: Chronic Priority: Medium Current Visit: Yes Annotation/Comment:: No anginal complaints at this time (5) Peptic reflux disease SNOMED Code(s): 681724078 Code(s): K21.9 - GASTRO-ESOPHAGEAL REFLUX DISEASE WITHOUT ESOPHAGITIS Status: Acute Priority: Medium Current Visit: Yes Annotation/Comment:: As above. Stable by history with previous history of lower GI bleed secondary to diverticulitis. (6) COPD (chronic obstructive pulmonary disease) SNOMED Code(s): 90849107 Code(s): J44.9 - CHRONIC OBSTRUCTIVE PULMONARY DISEASE, UNSPECIFIED Status: Chronic Priority: Medium Current Visit: Yes Annotation/Comment:: COPD by chest x-ray with no recent bronchitic-type symptoms, etc. Qualifiers: COPD type: emphysema Emphysema type: panlobular Qualified Code(s): J43.1 - Panlobular emphysema (7) Comfort measures only status SNOMED Code(s): 34520068984842 Code(s): Z51.5 - ENCOUNTER FOR PALLIATIVE CARE Status: Chronic Priority: Medium Current Visit: Yes Annotation/Comment:: Comfort care only, however patient and his daughter do agree to transfer to the [facility] in hospital when bed is available (8) Vascular dementia SNOMED Code(s): 268871184 Code(s): F01.50 - VASCULAR DEMENTIA WITHOUT BEHAVIORAL DISTURBANCE Status: Chronic Priority: Medium Current Visit: Yes Annotation/Comment:: Stable by history. History of psychosis as above. Patient extremely uncooperative during his ER care. Qualifiers: Dementia behavioral disturbance: with behavioral disturbance Qualified Code(s): F01.51 - Vascular dementia with behavioral disturbance (9) BPH (benign prostatic hyperplasia) SNOMED Code(s): 864856312 Code(s): N40.0 - BENIGN PROSTATIC HYPERPLASIA WITHOUT LOWER URINRY TRACT SYMP Status: Chronic Priority: High Current Visit: Yes Onset Date: 02/08/21 Annotation/Comment:: As above Qualifiers: Lower urinary tract symptom presence: symptoms present Lower urinary tract symptom detail: urinary retention Qualified Code(s): N40.1 - Benign prostatic hyperplasia with lower urinary tract symptoms; R33.8 - Other retention of urine (10) Hydronephrosis SNOMED Code(s): 30519232 Code(s): N13.30 - UNSPECIFIED HYDRONEPHROSIS Status: Acute Priority: High Current Visit: Yes Onset Date: 02/08/21 Annotation/Comment:: As above Qualifiers: Hydronephrosis type: other Qualified Code(s): N13.39 - Other hydronephrosis (11) Renal cyst SNOMED Code(s): 916078415 Code(s): N28.1 - CYST OF KIDNEY, ACQUIRED Status: Acute Priority: Medium Current Visit: Yes Onset Date: 02/08/21 Annotation/Comment:: As above - Problem List Review Problem List Initiated/Reviewed/Updated: Yes - My Orders Last 24 Hours: My Active Orders 02/08/21 15:21 Obtain Past Medical Record [OM.PC] Routine 02/08/21 15:22 Peripheral IV Insertion Adult [OM.PC] Routine 02/08/21 15:23 Peripheral IV Care [RC] . DIRECTED Sodium Chloride 0.9% [Saline Flush] 10 ml FLUSH ASDIRECTED PRN 02/08/21 15:44 Abdomen Series w Chest 1V [CR] Routine 02/08/21 17:19 Abdomen Pelvis wo Cont [CT] Stat 02/08/21 17:30 Lactated Ringers [Ringers, Lactated] 1,000 ml IV ASDIRECTED 02/08/21 18:27 Urinary Catheter Assessment [RC] ASDIRECTED 02/08/21 18:30 Colby Catheter Insertion [Insert Urinary Catheter] [OM.PC] Q24H 02/08/21 18:55 CULTURE URINE [RM] Routine - Assessment/Plan Last 24 Hours: My Active Orders 02/08/21 15:21 Obtain Past Medical Record [OM.PC] Routine 02/08/21 15:22 Peripheral IV Insertion Adult [OM.PC] Routine 02/08/21 15:23 Peripheral IV Care [RC] . DIRECTED Sodium Chloride 0.9% [Saline Flush] 10 ml FLUSH ASDIRECTED PRN 02/08/21 15:44 Abdomen Series w Chest 1V [CR] Routine 02/08/21 17:19 Abdomen Pelvis wo Cont [CT] Stat 02/08/21 17:30 Lactated Ringers [Ringers, Lactated] 1,000 ml IV ASDIRECTED 02/08/21 18:27 Urinary Catheter Assessment [RC] ASDIRECTED 02/08/21 18:30 Colby Catheter Insertion [Insert Urinary Catheter] [OM.PC] Q24H 02/08/21 18:55 CULTURE URINE [RM] Routine Assessment:: As above Plan: As above. Extensive precautions were given to the patient's daughter/POA, who is in agreement with the treatment plan, with repeat telephone consultation shor tly prior to patient's transfer. Ambulance transfer to the [facility] in [place] with superintendent of generation accompaniment as above.
[2021-02-08] MEDS: Sodium Chloride 0.9% 10 ML Syringe FLUSH PRN ×2 (15:46→15:47)
[2021-02-08] MEDS ORDERED: cefTRIAXone 2 GM Vial IVPUSH ONE (17:18)
[2021-02-08] MEDS ORDERED: Lactated Ringers 1,000 ML IV SCH (17:30)
[2021-02-08 20:26] VITALS: BP 91/69; PULSE 69
== END 2021-02-08 20:10 ==
LOC: LL.ED 15:15
DX: N13.30 Unspecified hydronephrosis (principal); I11.9 Hypertensive heart disease without heart failure; J43.1 Panlobular emphysema; N40.1 Benign prostatic hyperplasia with lower urinary tract symptoms; F01.51 Vascular dementia, unspecified severity, with behavioral disturbance; K21.9 Gastro-esophageal reflux disease without esophagitis; I12.9 Hypertensive chronic kidney disease with stage 1 through stage 4 chronic kidney disease, or unspecified chronic kidney disease; E11.22 Type 2 diabetes mellitus with diabetic chronic kidney disease; E11.40 Type 2 diabetes mellitus with diabetic neuropathy, unspecified; N18.9 Chronic kidney disease, unspecified; E66.9 Obesity, unspecified; Z68.30 Body mass index [BMI] 30.0-30.9, adult; Z79.899 Other long term (current) drug therapy; Z79.82 Long term (current) use of aspirin; Z20.822 Contact with and (suspected) exposure to COVID-19
CPT/HCPCS: 51702; 74022; 74176; 80076; 81001; 82150; 83605; 83690; 84100; 87086; 96374; 96375; 99284; 99285-25; C9113; J0696; J3490; J7120; U0002

== ENCOUNTER 2021-04-01 14:52 | Emergency (ER) | payer OTHER ==
[2021-04-01] MEDS: LORazepam 2 MG/ML SDV IM ONE (15:19)
[2021-04-01] MEDS: diphenhydrAMINE 50 MG/ML SDV IM ONE (15:22)
[2021-04-01] MEDS: Albuterol/Ipratropium 3.0-0.5 MG/3 ML Neb Soln NEB ONE (16:04)
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
[2021-04-01 19:29] VITALS: BP 106/69; PULSE 80
== END 2021-04-01 17:05 ==
LOC: LL.ED 14:52
DX: F03.90 Unspecified dementia, unspecified severity, without behavioral disturbance, psychotic disturbance, mood disturbance, and anxiety (principal); J44.9 Chronic obstructive pulmonary disease, unspecified; I25.10 Atherosclerotic heart disease of native coronary artery without angina pectoris; I13.0 Hypertensive heart and chronic kidney disease with heart failure and stage 1 through stage 4 chronic kidney disease, or unspecified chronic kidney disease; E11.21 Type 2 diabetes mellitus with diabetic nephropathy; N18.9 Chronic kidney disease, unspecified; I50.9 Heart failure, unspecified; E66.9 Obesity, unspecified; E78.00 Pure hypercholesterolemia, unspecified; K21.9 Gastro-esophageal reflux disease without esophagitis; Z68.30 Body mass index [BMI] 30.0-30.9, adult
CPT/HCPCS: 94640; 96372; 99285; J1200; J2060; J7620-GY